=== PATIENT | male | born 1950 | race Caucasian/White ===

== ENCOUNTER 2020-05-27 15:09 | Inpatient (IN) | payer OTHER, MEDICARE ==
[~2020-05-27] VITALS: Ht 177.8 cm; Wt 110.0 kg
[~2020-05-27 15:09] MED LIST: ASPI-1265 PO; ATOR20TA66 PO; CHOL100010 PO; CLOP75TA35 PO; LISI-643 PO; OMEP-84 PO; TRAZ-91 PO; VENL-190 PO
--- NOTE | 2020-05-27 15:23 | NUR ---
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
[2020-05-27 15:41] LABS: BASOPHILS # (AUTO) 0.1 X10'3 (0-0.2); BASOPHILS % (AUTO) 0.9 % (0-1); EOSINOPHILS # (AUTO) 0.2 X10'3 (0-0.9); EOSINOPHILS % (AUTO) 2.8 % (0-6); HEMATOCRIT 42.1 % (42.0-52.0); HEMOGLOBIN 14.3 g/dl (14.0-17.9); LYMPHOCYTES % (AUTO) 14.5 % (21-51); MEAN CORPUSCULAR HGB CONC 33.9 g/dL (33.0-36.5); MEAN CORPUSCULAR VOLUME 97.4 FL (78-98); MONOCYTES # (AUTO) 0.8 X10'3 (0-0.9); MONOCYTES % (AUTO) 10.8 % (2-12); PLATELET COUNT 212 X10'3 (140-440); RED BLOOD COUNT 4.33 X10'6 (4.70-6.10); RED CELL DISTRIBUTION WIDTH 13.2 % (11.5-14.5)
[2020-05-27 15:55] LABS: ALANINE AMINOTRANSFERASE 29 U/L (12-78); ALBUMIN 3.6 G/DL (3.4-5.0); ALBUMIN/GLOBULIN RATIO 1.1 (1.1-1.5); ALKALINE PHOSPHATASE 94 IU/L (46-116); ANION GAP 7 (8-16); ASPARTATE AMINO TRANSFERASE 12 U/L (10-37); BILIRUBIN,TOTAL 0.6 MG/DL (0.1-1.0); BLOOD UREA NITROGEN 11 MG/DL (7-18); BUN/CREATININE RATIO 8.6 (5.4-32.0); CALCIUM 8.6 MG/DL (8.5-10.1); CHLORIDE 104 MMOL/L (99-107); CREATININE 1.28 MG/DL (0.60-1.10); GLUCOSE 314 MG/DL (70-104); SODIUM 137 MMOL/L (135-145); TOTAL CARBON DIOXIDE 25.9 MMOL/L (24-32); eGFR 55 ML/MIN
[2020-05-27] MEDS ORDERED: furosemide 10 MG/1 ML 10ml inj IV ONE (17:50)
--- NOTE | 2020-05-27 18:30 | NUR ---
pt resting quietly on gurney, resp even and unlabored,
[2020-05-27] MEDS ORDERED: ALOG12.5 PO (18:50)
[2020-05-27] MEDS ORDERED: TIOT4MIS5 INH (18:50)
[2020-05-27] MEDS ORDERED: MULT-1141 PO (18:51)
[2020-05-27] MEDS ORDERED: MELA5TAB12 PO (18:51)
[2020-05-27] MEDS ORDERED: mag hydrox/Alum hydrox/simeth 30ml oral suspension PO PRN (19:35)
[2020-05-27] MEDS ORDERED: potassium Cl 20 mEq SR tablet PO PRN ×2 (19:35)
[2020-05-27] MEDS ORDERED: acetaminophen 325mg tablet PO PRN (19:35)
[2020-05-27] MEDS ORDERED: magnesium hydroxide 30ml (MOM) UD suspension PO PRN (19:35)
[2020-05-27] MEDS ORDERED: potassium CL 10mEq/100ml bag 100 ML IV PRN ×2 (19:35)
[2020-05-27] MEDS ORDERED: ondansetron/PF 4mg/2ml inj IV PRN (19:35)
[2020-05-27] MEDS ORDERED: glucagon, human recombinant 1mg kit SUBCUT PRN (19:40)
[2020-05-27] MEDS ORDERED: dextrose 50%-water 50ml dispensing syringe IV PRN ×2 (19:40)
[2020-05-27] MEDS ORDERED: MESSAGE TO PHARMACY PO ONE (19:40)
[2020-05-27] MEDS ORDERED: dextrose ORAL solution 15 GM/59 ML bottle PO PRN ×2 (19:40)
[2020-05-27] MEDS: K and/or MAG REPLACEMENT MC SCH (20:00)
--- NOTE | 2020-05-27 20:27 | NUR ---
report called to Cheryl RN
[2020-05-27] MEDS: heparin, porcine 5000 units/ml vial SQ SCH (21:07)
[2020-05-27] MEDS: furosemide 10 MG/1 ML 10ml inj IV SCH (21:07)
[2020-05-27] MEDS: venlafaxine XR 75mg capsule (Q24H) PO SCH (21:08)
[2020-05-27] MEDS: insulin glargine (Lantus) pen - multi-dose SQ SCH (21:21)
[2020-05-27 21:30] VITALS: BP 132/74
[2020-05-27 21:56] LABS: HEMOGLOBIN A1C 8.5 % (4.5-6.2)
[2020-05-27 22:00] VITALS: BP 129/72
[2020-05-27] MEDS: ipratropium 0.5 MG/2.5ML nebule IH SCH (23:00)
[2020-05-28] VITALS (14 sets, daily range): BP systolic 74–128; BP diastolic 34–83
[2020-05-28] MEDS: ipratropium 0.5 MG/2.5ML nebule IH SCH ×4 (03:00→21:07)
[2020-05-28 03:48] LABS: BASOPHILS # (AUTO) 0.1 X10'3 (0-0.2); BASOPHILS % (AUTO) 0.6 % (0-1); EOSINOPHILS # (AUTO) 0.2 X10'3 (0-0.9); EOSINOPHILS % (AUTO) 1.9 % (0-6); HEMATOCRIT 44.3 % (42.0-52.0); HEMOGLOBIN 14.8 g/dl (14.0-17.9); LYMPHOCYTES % (AUTO) 21.8 % (21-51); MEAN CORPUSCULAR HEMOGLOBIN 32.5 PG (27.0-31.0); MEAN CORPUSCULAR HGB CONC 33.5 g/dL (33.0-36.5); MEAN CORPUSCULAR VOLUME 96.9 FL (78-98); MONOCYTES # (AUTO) 1.1 X10'3 (0-0.9); MONOCYTES % (AUTO) 12.6 % (2-12); NEUTROPHILS # (AUTO) 5.7 X10'3 (1.8-7.7); NEUTROPHILS % (AUTO) 63.1 % (42-75); PLATELET COUNT 227 X10'3 (140-440); RED BLOOD COUNT 4.57 X10'6 (4.70-6.10); RED CELL DISTRIBUTION WIDTH 13.5 % (11.5-14.5)
[2020-05-28 03:56] LABS: ALANINE AMINOTRANSFERASE 30 U/L (12-78); ALBUMIN 3.9 G/DL (3.4-5.0); ALBUMIN/GLOBULIN RATIO 1.1 (1.1-1.5); ALKALINE PHOSPHATASE 89 IU/L (46-116); ANION GAP 4 (8-16); ASPARTATE AMINO TRANSFERASE 18 U/L (10-37); BILIRUBIN,TOTAL 0.7 MG/DL (0.1-1.0); BLOOD UREA NITROGEN 14 MG/DL (7-18); BUN/CREATININE RATIO 9.6 (5.4-32.0); CALCIUM 9.2 MG/DL (8.5-10.1); CHLORIDE 102 MMOL/L (99-107); CREATININE 1.46 MG/DL (0.60-1.10); GLUCOSE 199 MG/DL (70-104); POTASSIUM 3.5 MMOL/L (3.5-5.1); SODIUM 138 MMOL/L (135-145); TOTAL CARBON DIOXIDE 32.3 MMOL/L (24-32); TOTAL PROTEIN 7.4 G/DL (6.4-8.2); eGFR 47 ML/MIN
[2020-05-28 03:59] LABS: CHOL/HDL RATIO 3.1 (0.00-4.99); CHOLESTEROL 157 MG/DL (0-200); HDL CHOLESTEROL 51 MG/DL (35-60); LDL CHOLESTEROL 92 MG/DL (50-100); TRIGLYCERIDES 99 MG/DL (20-135)
--- NOTE | 2020-05-28 06:29 | NUR ---
Problems reprioritized. Patient report given, questions answered & plan of care reviewed with Pat RN.
[2020-05-28] MEDS: K and/or MAG REPLACEMENT MC SCH ×2 (08:00→20:37)
[2020-05-28] MEDS: furosemide 10 MG/1 ML 10ml inj IV SCH (08:00)
[2020-05-28] MEDS: lisinopril 10 MG tablet PO SCH (08:00)
[2020-05-28] MEDS: venlafaxine XR 75mg capsule (Q24H) PO SCH ×2 (08:06→20:20)
[2020-05-28] MEDS: aspirin 81mg tab.chew PO SCH (08:08)
[2020-05-28] MEDS: atorvastatin 20mg tablet PO SCH (08:08)
[2020-05-28] MEDS: pantoprazole 40mg Tablet.DR PO SCH (08:09)
[2020-05-28] MEDS: heparin, porcine 5000 units/ml vial SQ SCH ×2 (08:10→20:21)
[2020-05-28] MEDS: insulin Lispro (HumaLOG) vial - multi-dose SQ SCH ×4 (08:55→21:56)
[2020-05-28] MEDS ORDERED: furosemide 40mg/4ml inj IV SCH (11:05)
[2020-05-28 12:54] LABS: CLARITY,URINE CLEAR (Clear); COLOR,URINE YELLOW (Yellow); GLUCOSE, URINE 250 mg/dl (Neg); KETONES,URINE NEGATIVE (Neg); LEUKOCYTE ESTERASE ,URINE NEGATIVE (Neg); NITRITES, URINE NEGATIVE (Neg); OCCULT BLOOD,URINE NEGATIVE (Neg); PH,URINE 5.5 (4.8-8.0); PROTEIN,URINE NEGATIVE (Neg); UROBILINOGEN,URINE 0.2 E.U/dL (0.2-1.0)
[2020-05-28 12:55] LABS: UA COLLECTION TYPE CLN CATCH MIDSTREAM
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
[2020-05-28] MEDS ORDERED: DOBUTamine-DoBUTrex 500mg/D5W 250 ML IV SCH (14:00)
[2020-05-28] MEDS ORDERED: magnesium Cl slow-release 64mg tablet PO PRN (14:55)
[2020-05-28] MEDS ORDERED: magnesium 4gm in 100ml NS 100 ML IV PRN (14:55)
[2020-05-28] MEDS ORDERED: magnesium 2GM in 50ml NS 50 ML IV PRN (14:55)
[2020-05-28] MEDS ORDERED: potassium CL 10mEq/100ml bag 100 ML IV PRN (14:55)
--- NOTE | 2020-05-28 15:00 | NUR ---
STARTED PATIENT ON DOBUTREX AT 3MCG/KG. NO C/O AT THIS TIME. HOB UP CALL LIGHT IN REACH Addendum: 05/28/20 at 1937 by Sindy Hanks RN Amended: Links added.
[2020-05-28] MEDS: potassium Cl 20 mEq SR tablet PO PRN ×2 (15:37→20:36)
[2020-05-28 16:45] LABS: MAGNESIUM 1.9 MG/DL (1.5-2.4)
[2020-05-28] MEDS: DOBUTamine-DoBUTrex 500mg/D5W 250 ML IV SCH (17:40)
--- NOTE | 2020-05-28 18:35 | NUR ---
Patient in room MED 314. I have received report from DUANE RN and had the opportunity to ask questions and assume patient care.
[2020-05-28] MEDS ORDERED: furosemide 10 MG/1 ML 10ml inj IV SCH (20:00)
[2020-05-28] MEDS: furosemide 20 MG/2 ML vial IV SCH (20:18)
[2020-05-28] MEDS: carVEDilol 3.125mg tablet PO SCH (20:20)
[2020-05-28] MEDS: acetylcysteine 200 MG/ml 4ml vial PO SCH (20:31)
[2020-05-28] MEDS: insulin glargine (Lantus) pen - multi-dose SQ SCH (21:57)
[2020-05-29] VITALS (20 sets, daily range): BP systolic 67–118; BP diastolic 14–82
[2020-05-29] MEDS: ipratropium 0.5 MG/2.5ML nebule IH SCH ×3 (03:06→20:18)
--- NOTE | 2020-05-29 06:43 | NUR ---
Problems reprioritized. Patient report given, questions answered & plan of care reviewed with PAT RN.
[2020-05-29 07:24] LABS: BASOPHILS % (AUTO) 0.6 % (0-1); EOSINOPHILS # (AUTO) 0.2 X10'3 (0-0.9); EOSINOPHILS % (AUTO) 2.2 % (0-6); HEMATOCRIT 41.5 % (42.0-52.0); HEMOGLOBIN 14.1 g/dl (14.0-17.9); LYMPHOCYTES # (AUTO) 1.6 X10'3 (1.1-4.8); LYMPHOCYTES % (AUTO) 19.9 % (21-51); MEAN CORPUSCULAR HEMOGLOBIN 32.7 PG (27.0-31.0); MEAN CORPUSCULAR HGB CONC 33.9 g/dL (33.0-36.5); MEAN CORPUSCULAR VOLUME 96.4 FL (78-98); MEAN PLATELET VOLUME 10.5 FL (7.4-10.4); MONOCYTES % (AUTO) 13.1 % (2-12); NEUTROPHILS # (AUTO) 5.1 X10'3 (1.8-7.7); NEUTROPHILS % (AUTO) 64.2 % (42-75); PLATELET COUNT 218 X10'3 (140-440); RED CELL DISTRIBUTION WIDTH 13.5 % (11.5-14.5)
[2020-05-29] MEDS: DOBUTamine-DoBUTrex 500mg/D5W 250 ML IV SCH ×2 (07:37→21:50)
[2020-05-29] MEDS: heparin, porcine 5000 units/ml vial SQ SCH (08:00)
[2020-05-29] MEDS: K and/or MAG REPLACEMENT MC SCH ×2 (08:00→20:00)
[2020-05-29] MEDS: furosemide 20 MG/2 ML vial IV SCH ×2 (08:00→20:00)
[2020-05-29] MEDS: venlafaxine XR 75mg capsule (Q24H) PO SCH ×2 (08:00→20:00)
[2020-05-29 08:22] LABS: ALANINE AMINOTRANSFERASE 30 U/L (12-78); ALBUMIN 3.8 G/DL (3.4-5.0); ALBUMIN/GLOBULIN RATIO 1.1 (1.1-1.5); ALKALINE PHOSPHATASE 83 IU/L (46-116); ANION GAP 9 (8-16); ASPARTATE AMINO TRANSFERASE 21 U/L (10-37); BLOOD UREA NITROGEN 20 MG/DL (7-18); BUN/CREATININE RATIO 14.9 (5.4-32.0); CALCIUM 8.9 MG/DL (8.5-10.1); CHLORIDE 99 MMOL/L (99-107); CREATININE 1.34 MG/DL (0.60-1.10); GLUCOSE 172 MG/DL (70-104); POTASSIUM 3.7 MMOL/L (3.5-5.1); SODIUM 137 MMOL/L (135-145); TOTAL CARBON DIOXIDE 28.8 MMOL/L (24-32); TOTAL PROTEIN 7.2 G/DL (6.4-8.2); eGFR 52 ML/MIN
[2020-05-29] MEDS: lisinopril 10 MG tablet PO SCH (09:13)
[2020-05-29] MEDS: atorvastatin 20mg tablet PO SCH (09:13)
[2020-05-29] MEDS: pantoprazole 40mg Tablet.DR PO SCH (09:14)
[2020-05-29] MEDS: acetylcysteine 200 MG/ml 4ml vial PO SCH ×2 (09:14→20:52)
[2020-05-29] MEDS: carVEDilol 3.125mg tablet PO SCH ×2 (09:15→20:00)
[2020-05-29] MEDS: aspirin 81mg tab.chew PO SCH (09:15)
[2020-05-29] MEDS: potassium Cl 20 mEq SR tablet PO PRN ×2 (09:16→15:24)
[2020-05-29] MEDS: potassium Cl 20 mEq SR tablet PO SCH ×2 (09:16→20:51)
[2020-05-29] MEDS ORDERED: METO-395 PO (09:32)
[2020-05-29] MEDS ORDERED: atorvastatin 20mg tablet PO ONE (09:40)
[2020-05-29] MEDS ORDERED: fentaNYL/PF 50MCG/1 ML 2ML syringe ONE (10:32)
[2020-05-29] MEDS ORDERED: midazolam 2 mg/2 ml injection ONE (10:32)
[2020-05-29] MEDS ORDERED: LIDOcaine 1% (10mg/ml)w/preservative injection 20ml MDV ONE (10:32)
[2020-05-29] MEDS ORDERED: iohexol 350 MG/ML 50ML vial IV ONE (10:32)
[2020-05-29] MEDS ORDERED: heparin 1,000unit/ml 10ml vial 10 ML ONE (10:32)
[2020-05-29] MEDS ORDERED: iohexol 350 MG/1 ML 200ml bottle ONE (10:33)
[2020-05-29] MEDS ORDERED: heparin 1,000 UNITS/NS 500ml 500 ML ONE ×2 (10:33)
[2020-05-29] MEDS ORDERED: nitroGLYCERIN-Tridil 50MG/D5W 250 ML IV ONE (10:33)
[2020-05-29] MEDS ORDERED: spironolactone 25 MG tablet PO SCH (12:00)
[2020-05-29] MEDS ORDERED: losartan 25mg tablet PO SCH (12:00)
--- NOTE | 2020-05-29 16:25 | NUR ---
PATIENT HAD 10 BEAT RUN OF V TACHEyal KELLY C/P VS STABLE AFIB WITH CONTROLLED RATE. DR. JENSEN GARCIA. Addendum: 05/29/20 at 1837 by Sindy Hanks RN Amended: Links added.
[2020-05-29] MEDS ORDERED: potassium Cl 20 mEq SR tablet PO STA (18:26)
[2020-05-29] MEDS ORDERED: magnesium 2GM in 50ml NS 50 ML IV ONE (18:30)
--- NOTE | 2020-05-29 18:30 | NUR ---
Patient in room MED 314. I have received report from Luis A, and had the opportunity to ask questions and assume patient care.
--- NOTE | 2020-05-29 18:35 | NUR ---
DR. STYLES PHONED ,ORDERS RECEIVED AND NOTED. Addendum: 05/29/20 at 1837 by Sindy Hanks RN Amended: Links added.
--- NOTE | 2020-05-29 19:00 | NUR ---
Patient's blood pressure drop to 77/37 with HR of 81at 1900 and then again to 67/31 with HR of 81 despite RN bolus x2 was administered. Dr. Lozano and Dr. Leos paged regarding the issue. waiting for the response from both.
--- NOTE | 2020-05-29 19:36 | NUR ---
Dr. Lozano paged and left the message regarding the patient's blood pressure dropping despite the patient received 2 bolus of 250ml bolus. blood pressure at 1929 is 67/31 with HR of 81. The answering service said that they gonlaisha page the clearing distribution clerk doctor. Addendum: 05/29/20 at 1950 by Massiel Mart RN Dr. Lozano called and ordered to decrease the patients lisinopril to 10mg daily. Hold on to his BP medications for now and keep an eye on his blood pressure. No other orders were given at this time.
--- NOTE | 2020-05-29 19:36 | NUR ---
PAGER ID: [phone] MESSAGE: Dayron Brandt 70M Room 314 ACCE, s/p heart cath with no stent placement. BP drop to 67/31 with HR of 81. the site is CDI, pt. asymptomatic. Concerned about peritoneal bleed. Pt is on 2nd bolus but BP still low. Amanda ACCE [id number] Addendum: 05/29/20 at 1950 by Massiel Mart RN Dr. Leos called back and ordered to hold on to his blood pressure medication. Stating that the low blood pressure maybe due to his low LVEF being 25-30%. No other orders were given.
--- NOTE | 2020-05-29 19:52 | NUR ---
Patient blood sugar coverage for dinner was delayed due to patient being in hypotensive condition and paging and talking with the hospitalist and Dr. Lozano. Will recheck his blood sugar at 2100 and will treat accordingly.
[2020-05-29] MEDS: insulin glargine (Lantus) pen - multi-dose SQ SCH (21:07)
[2020-05-30] VITALS (11 sets, daily range): BP systolic 89–135; BP diastolic 45–70
[2020-05-30] MEDS: ipratropium 0.5 MG/2.5ML nebule IH SCH ×3 (02:21→19:36)
[2020-05-30 06:06] LABS: BASOPHILS # (AUTO) 0.1 X10'3 (0-0.2); EOSINOPHILS # (AUTO) 0.3 X10'3 (0-0.9); EOSINOPHILS % (AUTO) 4.5 % (0-6); HEMATOCRIT 38.3 % (42.0-52.0); HEMOGLOBIN 12.7 g/dl (14.0-17.9); LYMPHOCYTES # (AUTO) 1.4 X10'3 (1.1-4.8); LYMPHOCYTES % (AUTO) 23.5 % (21-51); MEAN CORPUSCULAR HEMOGLOBIN 32.5 PG (27.0-31.0); MEAN CORPUSCULAR HGB CONC 33.1 g/dL (33.0-36.5); MEAN CORPUSCULAR VOLUME 98.2 FL (78-98); MEAN PLATELET VOLUME 10.2 FL (7.4-10.4); MONOCYTES # (AUTO) 0.8 X10'3 (0-0.9); MONOCYTES % (AUTO) 12.9 % (2-12); NEUTROPHILS # (AUTO) 3.5 X10'3 (1.8-7.7); NEUTROPHILS % (AUTO) 58.1 % (42-75); PLATELET COUNT 193 X10'3 (140-440); RED CELL DISTRIBUTION WIDTH 13.3 % (11.5-14.5); WHITE BLOOD COUNT 6.1 X10'3 (4.5-11.0)
[2020-05-30 06:08] LABS: ALANINE AMINOTRANSFERASE 27 U/L (12-78); ALBUMIN 3.4 G/DL (3.4-5.0); ALBUMIN/GLOBULIN RATIO 1.1 (1.1-1.5); ALKALINE PHOSPHATASE 70 IU/L (46-116); ANION GAP 5 (8-16); ASPARTATE AMINO TRANSFERASE 23 U/L (10-37); BILIRUBIN,TOTAL 0.8 MG/DL (0.1-1.0); BLOOD UREA NITROGEN 23 MG/DL (7-18); BUN/CREATININE RATIO 17.2 (5.4-32.0); CALCIUM 8.4 MG/DL (8.5-10.1); CHLORIDE 101 MMOL/L (99-107); CHOLESTEROL 132 MG/DL (0-200); CREATININE 1.34 MG/DL (0.60-1.10); GLUCOSE 161 MG/DL (70-104); HDL CHOLESTEROL 44 MG/DL (35-60); LDL CHOLESTEROL 76 MG/DL (50-100); MAGNESIUM 2.3 MG/DL (1.5-2.4); POTASSIUM 4.1 MMOL/L (3.5-5.1); SODIUM 136 MMOL/L (135-145); TOTAL PROTEIN 6.5 G/DL (6.4-8.2); TRIGLYCERIDES 78 MG/DL (20-135); eGFR 52 ML/MIN
--- NOTE | 2020-05-30 06:30 | NUR ---
Patient in room MED 314. I have received report from Massiel VENTURA and had the opportunity to ask questions and assume patient care.
--- NOTE | 2020-05-30 06:35 | NUR ---
Problems reprioritized. Patient report given to Andrew, questions answered & plan of care reviewed with .
[2020-05-30] MEDS: carVEDilol 3.125mg tablet PO SCH ×2 (08:00→19:33)
[2020-05-30] MEDS: K and/or MAG REPLACEMENT MC SCH ×2 (08:00→20:00)
[2020-05-30] MEDS: acetylcysteine 200 MG/ml 4ml vial PO SCH ×2 (08:21→19:33)
[2020-05-30] MEDS: venlafaxine XR 75mg capsule (Q24H) PO SCH ×2 (08:21→19:33)
[2020-05-30] MEDS: pantoprazole 40mg Tablet.DR PO SCH (08:22)
[2020-05-30] MEDS: furosemide 20 MG/2 ML vial IV SCH ×2 (08:22→19:33)
[2020-05-30] MEDS: aspirin 81mg tab.chew PO SCH (08:22)
[2020-05-30] MEDS: atorvastatin 20mg tablet PO SCH (08:23)
[2020-05-30] MEDS: insulin Lispro (HumaLOG) vial - multi-dose SQ SCH ×3 (08:57→19:29)
[2020-05-30] MEDS: lisinopril 10 MG tablet PO SCH (12:00)
[2020-05-30] MEDS: DOBUTamine-DoBUTrex 500mg/D5W 250 ML IV SCH (12:43)
--- NOTE | 2020-05-30 18:15 | NUR ---
Problems reprioritized. Patient report given, questions answered & plan of care reviewed with Massiel VENTURA.
[2020-05-30] MEDS: insulin glargine (Lantus) pen - multi-dose SQ SCH (21:14)
[2020-05-31 02:00] VITALS: BP 105/42
[2020-05-31] MEDS: ipratropium 0.5 MG/2.5ML nebule IH SCH ×3 (02:47→15:12)
[2020-05-31] MEDS: DOBUTamine-DoBUTrex 500mg/D5W 250 ML IV SCH (05:01)
[2020-05-31 05:58] LABS: ALANINE AMINOTRANSFERASE 29 U/L (12-78); ALBUMIN 3.4 G/DL (3.4-5.0); ALBUMIN/GLOBULIN RATIO 1.1 (1.1-1.5); ALKALINE PHOSPHATASE 73 IU/L (46-116); ANION GAP 4 (8-16); ASPARTATE AMINO TRANSFERASE 26 U/L (10-37); BILIRUBIN,TOTAL 0.8 MG/DL (0.1-1.0); BLOOD UREA NITROGEN 25 MG/DL (7-18); BUN/CREATININE RATIO 18.1 (5.4-32.0); CALCIUM 8.6 MG/DL (8.5-10.1); CHLORIDE 102 MMOL/L (99-107); CREATININE 1.38 MG/DL (0.60-1.10); GLUCOSE 104 MG/DL (70-104); MAGNESIUM 2.1 MG/DL (1.5-2.4); POTASSIUM 4.2 MMOL/L (3.5-5.1); SODIUM 136 MMOL/L (135-145); TOTAL CARBON DIOXIDE 29.7 MMOL/L (24-32); TOTAL PROTEIN 6.5 G/DL (6.4-8.2); eGFR 51 ML/MIN
[2020-05-31 06:00] VITALS: BP 110/75
[2020-05-31 06:05] LABS: BASOPHILS % (AUTO) 0.5 % (0-1); EOSINOPHILS # (AUTO) 0.2 X10'3 (0-0.9); EOSINOPHILS % (AUTO) 3.5 % (0-6); HEMATOCRIT 37.8 % (42.0-52.0); HEMOGLOBIN 12.8 g/dl (14.0-17.9); LYMPHOCYTES # (AUTO) 1.3 X10'3 (1.1-4.8); LYMPHOCYTES % (AUTO) 18.1 % (21-51); MEAN CORPUSCULAR HGB CONC 33.9 g/dL (33.0-36.5); MEAN CORPUSCULAR VOLUME 97.3 FL (78-98); MEAN PLATELET VOLUME 10.1 FL (7.4-10.4); MONOCYTES # (AUTO) 0.9 X10'3 (0-0.9); MONOCYTES % (AUTO) 12.4 % (2-12); NEUTROPHILS # (AUTO) 4.6 X10'3 (1.8-7.7); NEUTROPHILS % (AUTO) 65.5 % (42-75); PLATELET COUNT 181 X10'3 (140-440); RED BLOOD COUNT 3.88 X10'6 (4.70-6.10); RED CELL DISTRIBUTION WIDTH 13.2 % (11.5-14.5); WHITE BLOOD COUNT 7.1 X10'3 (4.5-11.0)
--- NOTE | 2020-05-31 06:10 | NUR ---
Problems reprioritized. Patient report given Trent, questions answered & plan of care reviewed with .
[2020-05-31] MEDS: lisinopril 10 MG tablet PO SCH (08:00)
[2020-05-31] MEDS: K and/or MAG REPLACEMENT MC SCH (08:00)
[2020-05-31] MEDS: potassium Cl 20 mEq SR tablet PO SCH (09:07)
[2020-05-31] MEDS: pantoprazole 40mg Tablet.DR PO SCH (09:07)
[2020-05-31] MEDS: venlafaxine XR 75mg capsule (Q24H) PO SCH (09:07)
[2020-05-31] MEDS: aspirin 81mg tab.chew PO SCH (09:07)
[2020-05-31] MEDS: acetylcysteine 200 MG/ml 4ml vial PO SCH (09:08)
[2020-05-31] MEDS: atorvastatin 20mg tablet PO SCH (09:08)
[2020-05-31] MEDS: carVEDilol 3.125mg tablet PO SCH (09:09)
[2020-05-31] MEDS: insulin Lispro (HumaLOG) vial - multi-dose SQ SCH ×2 (09:21→13:15)
[2020-05-31] MEDS: furosemide 20 MG/2 ML vial IV SCH (09:22)
[2020-05-31 10:00] VITALS: BP 119/80
[2020-05-31] MEDS ORDERED: FURO20TA4 PO (14:41)
[2020-05-31] MEDS ORDERED: SPIR25TA5 PO (14:41)
[2020-05-31 15:00] VITALS: BP 95/57
--- NOTE | 2020-05-31 16:38 | NUR ---
CALLED DR. STYLES OFFICE TO SCHEDULE FOLLOW UP APPOINTMENT. OFFICE WAS CLOSED. EDUCATED PATIENT AND HE IS AGREEABLE TO MAKE HIS OWN FOLLOW UP APPOINTMENT. OFFICE NUMBER PROVIDED TO THE PATIENT.
[2020-05-31] MEDS ORDERED: COR3.125T PO (17:09)
--- NOTE | 2020-05-31 18:35 | NUR ---
Patient stable for discharge per MD orders. All discharge instructions and education reviewed with patient and all questions answered. new prescriptions given to patient in written form for [facility]. PIV discontinued, tip intact, dressing CDI, patient tolerated well. tele monitoring removed. all known belongings collected and sent with patient. patient wheeled to pmv driven by family.
== END 2020-05-31 18:25 | disposition home health service (06) | DRG 286 ==
LOC: ER 15:09 → ED HOLD 19:33 → MED 3N 20:45
PROVIDERS: ADMIT Internal Medicine; ATTEND Family Medicine
PROC: 4A023N8 Measurement of Cardiac Sampling and Pressure, Bilateral, Percutaneous Approach (ICD-10-PCS; principal; 2020-05-29)
PROC: B2111ZZ Fluoroscopy of Multiple Coronary Arteries using Low Osmolar Contrast (ICD-10-PCS; 2020-05-29)
PROC: B2151ZZ Fluoroscopy of Left Heart using Low Osmolar Contrast (ICD-10-PCS; 2020-05-29)
PROC: B3101ZZ Fluoroscopy of Thoracic Aorta using Low Osmolar Contrast (ICD-10-PCS; 2020-05-29)
PROC: B2131ZZ Fluoroscopy of Multiple Coronary Artery Bypass Grafts using Low Osmolar Contrast (ICD-10-PCS; 2020-05-29)
DX: I13.0 Hypertensive heart and chronic kidney disease with heart failure and stage 1 through stage 4 chronic kidney disease, or unspecified chronic kidney disease (principal); I50.23 Acute on chronic systolic (congestive) heart failure; N18.9 Chronic kidney disease, unspecified; I25.119 Atherosclerotic heart disease of native coronary artery with unspecified angina pectoris; J44.9 Chronic obstructive pulmonary disease, unspecified; E78.5 Hyperlipidemia, unspecified; E78.00 Pure hypercholesterolemia, unspecified; I44.7 Left bundle-branch block, unspecified; E11.22 Type 2 diabetes mellitus with diabetic chronic kidney disease; I42.0 Dilated cardiomyopathy; F32.9 Major depressive disorder, single episode, unspecified; K21.9 Gastro-esophageal reflux disease without esophagitis; I25.2 Old myocardial infarction; Z80.8 Family history of malignant neoplasm of other organs or systems; Z82.5 Family history of asthma and other chronic lower respiratory diseases; Z83.3 Family history of diabetes mellitus; Z87.442 Personal history of urinary calculi; Z87.891 Personal history of nicotine dependence; Z95.1 Presence of aortocoronary bypass graft; Z79.899 Other long term (current) drug therapy
CPT/HCPCS: 36415; 71045; 80053; 80061; 81003; 82948; 83036; 83735; 83880; 84443; 84484; 85025; 86592; 87081; 87491; 93005; 93306; 93459; 93567; 94640; 94760; 99152; 99153; 99285; A4620; A6258; C1751; C1769; G0378; J1250; J1644; J1815; J1940; J2001; J2250; J3010; J3475; J3490; Q9967

== ENCOUNTER 2020-07-28 16:39 | Inpatient (IN) | payer OTHER, MEDICARE ==
[~2020-07-28] VITALS: Ht 177.8 cm; Wt 100.2 kg
[~2020-07-28 16:39] MED LIST changes: +ALOG12.5 PO; -CLOP75TA35 PO; +COR3.125T PO; +FURO20TA4 PO; +MELA5TAB12 PO; +METO-395 PO; +MULT-1141 PO; +SPIR25TA5 PO; +TIOT4MIS5 INH; -TRAZ-91 PO
[2020-07-28 18:06] LABS: BASOPHILS % (AUTO) 0.4 % (0-1); EOSINOPHILS # (AUTO) 0.1 X10'3 (0-0.9); EOSINOPHILS % (AUTO) 1.2 % (0-6); HEMATOCRIT 43.6 % (42.0-52.0); HEMOGLOBIN 14.4 g/dl (14.0-17.9); LYMPHOCYTES # (AUTO) 0.9 X10'3 (1.1-4.8); LYMPHOCYTES % (AUTO) 10.4 % (21-51); MEAN CORPUSCULAR HEMOGLOBIN 32.5 PG (27.0-31.0); MEAN CORPUSCULAR HGB CONC 33.1 g/dL (33.0-36.5); MEAN CORPUSCULAR VOLUME 98.2 FL (78-98); MEAN PLATELET VOLUME 10.2 FL (7.4-10.4); MONOCYTES # (AUTO) 0.7 X10'3 (0-0.9); MONOCYTES % (AUTO) 8.1 % (2-12); NEUTROPHILS # (AUTO) 6.7 X10'3 (1.8-7.7); NEUTROPHILS % (AUTO) 79.9 % (42-75); PLATELET COUNT 194 X10'3 (140-440); RED BLOOD COUNT 4.44 X10'6 (4.70-6.10); RED CELL DISTRIBUTION WIDTH 13.9 % (11.5-14.5); WHITE BLOOD COUNT 8.3 X10'3 (4.5-11.0)
[2020-07-28 18:31] LABS: ALANINE AMINOTRANSFERASE 16 U/L (12-78); ALBUMIN 3.8 G/DL (3.4-5.0); ALBUMIN/GLOBULIN RATIO 1.1 (1.1-1.5); ALKALINE PHOSPHATASE 91 IU/L (46-116); ANION GAP 9 (8-16); ASPARTATE AMINO TRANSFERASE 19 U/L (10-37); BLOOD UREA NITROGEN 23 MG/DL (7-18); CALCIUM 8.8 MG/DL (8.5-10.1); CHLORIDE 106 MMOL/L (99-107); CREATININE 1.21 MG/DL (0.60-1.10); GLUCOSE 179 MG/DL (70-104); POTASSIUM 4.3 MMOL/L (3.5-5.1); SODIUM 137 MMOL/L (135-145); TOTAL CARBON DIOXIDE 22.3 MMOL/L (24-32); TOTAL PROTEIN 7.4 G/DL (6.4-8.2); eGFR 59 ML/MIN
[2020-07-28] MEDS ORDERED: ipratropium/albuterol 3ml nebule NEB ONE (18:35)
[2020-07-28] MEDS ORDERED: predniSONE 20 mg tablet PO ONE (18:35)
[2020-07-28] MEDS ORDERED: furosemide 20 MG/2 ML vial IV ONE ×2 (19:15→23:15)
[2020-07-28] MEDS ORDERED: METF500T PO (19:46)
[2020-07-28] MEDS ORDERED: SEMA0.25 (19:47)
[2020-07-28] MEDS ORDERED: mag hydrox/Alum hydrox/simeth 30ml oral suspension PO PRN (21:05)
[2020-07-28] MEDS ORDERED: magnesium hydroxide 30ml (MOM) UD suspension PO PRN (21:05)
[2020-07-28] MEDS ORDERED: ondansetron/PF 4mg/2ml inj IV PRN (21:05)
[2020-07-28] MEDS ORDERED: acetaminophen 325mg tablet PO PRN ×2 (21:05)
[2020-07-28] MEDS ORDERED: morphine 2 MG/ML inj. syringe IV PRN ×2 (21:05)
--- NOTE | 2020-07-28 22:45 | NUR ---
PT LYING ON THE GURNEY AND IS AWAKE. STABLE VS. AWAITING IPA.
[2020-07-29] MEDS: Melatonin 3mg tablet PO SCH ×2 (00:39→20:25)
--- NOTE | 2020-07-29 00:44 | NUR ---
PLACED IN HOSPITAL BED. VSS, GIVEN SANDWICH AND JUICE AND JELLO. PT IS POLITE AND COOPERATIVE. AWAITING IPA. EXPECT ADMIT HOLD IN ER THROUGH THE NIGHT. PT UPDATED OF THIS.
--- NOTE | 2020-07-29 03:01 | NUR ---
Pt sleeping, lying on his right side with blankets covering to his shoulders.
[2020-07-29 05:32] LABS: BASOPHILS % (AUTO) 0.2 % (0-1); EOSINOPHILS % (AUTO) 0 % (0-6); HEMATOCRIT 43.3 % (42.0-52.0); HEMOGLOBIN 14.4 g/dl (14.0-17.9); LYMPHOCYTES # (AUTO) 0.6 X10'3 (1.1-4.8); LYMPHOCYTES % (AUTO) 7.1 % (21-51); MEAN CORPUSCULAR HEMOGLOBIN 32.7 PG (27.0-31.0); MEAN CORPUSCULAR HGB CONC 33.3 g/dL (33.0-36.5); MEAN CORPUSCULAR VOLUME 98.2 FL (78-98); MEAN PLATELET VOLUME 10.3 FL (7.4-10.4); MONOCYTES # (AUTO) 0.4 X10'3 (0-0.9); MONOCYTES % (AUTO) 5.3 % (2-12); NEUTROPHILS # (AUTO) 7.1 X10'3 (1.8-7.7); NEUTROPHILS % (AUTO) 87.4 % (42-75); PLATELET COUNT 201 X10'3 (140-440); RED BLOOD COUNT 4.41 X10'6 (4.70-6.10); RED CELL DISTRIBUTION WIDTH 13.8 % (11.5-14.5); WHITE BLOOD COUNT 8.1 X10'3 (4.5-11.0)
[2020-07-29 05:44] LABS: ALBUMIN 3.6 G/DL (3.4-5.0); ANION GAP 8 (8-16); BLOOD UREA NITROGEN 22 MG/DL (7-18); BUN/CREATININE RATIO 15.2 (5.4-32.0); CALCIUM 9.5 MG/DL (8.5-10.1); CHLORIDE 106 MMOL/L (99-107); CREATININE 1.45 MG/DL (0.60-1.10); GLUCOSE 215 MG/DL (70-104); POTASSIUM 4.5 MMOL/L (3.5-5.1); SODIUM 144 MMOL/L (135-145); TOTAL CARBON DIOXIDE 29.6 MMOL/L (24-32); eGFR 48 ML/MIN
[2020-07-29] MEDS: enoxaparin 40mg/0.4ml syringe SUBCUT SCH (08:43)
[2020-07-29] MEDS: atorvastatin 20mg tablet PO SCH (08:44)
[2020-07-29] MEDS: aspirin 81mg tab.chew PO SCH (08:44)
[2020-07-29] MEDS: metoprolol succinate 25mg (24-HOUR) SR. Tablet PO SCH (08:44)
[2020-07-29] MEDS: vitamin D (cholecalciferol) 1,000 unit tablet PO SCH (08:44)
[2020-07-29] MEDS: pantoprazole 40mg Tablet.DR PO SCH (08:44)
[2020-07-29] MEDS: furosemide 20 MG/2 ML vial IV SCH ×2 (08:45→20:25)
--- NOTE | 2020-07-29 09:04 | NUR ---
dr. galaviz paged: PAGER ID: [phone] MESSAGE: JUANJOSE - ER PT GOING TO ACCE 312, H/O DM, OK to order hyperglycemia protocol? nurse Albina [phone]
[2020-07-29] MEDS ORDERED: dextrose 50%-water 50ml dispensing syringe IV PRN ×2 (09:05)
[2020-07-29] MEDS ORDERED: dextrose ORAL solution 15 GM/59 ML bottle PO PRN ×2 (09:05)
[2020-07-29] MEDS ORDERED: glucagon, human recombinant 1mg kit SUBCUT PRN (09:05)
[2020-07-29] MEDS ORDERED: MESSAGE TO PHARMACY PO ONE (09:05)
[2020-07-29 09:43] LABS: HEMOGLOBIN A1C 7.4 % (4.5-6.2)
[2020-07-29 10:00] VITALS: BP 135/92
[2020-07-29 11:00] VITALS: BP 110/70
--- NOTE | 2020-07-29 11:56 | NUR ---
PETE AT BEDSIDE. NEW ORDER - ECHO
[2020-07-29 15:00] VITALS: BP 107/80
[2020-07-29 18:00] VITALS: BP 110/79
--- NOTE | 2020-07-29 18:00 | NUR ---
Problems reprioritized. Patient report given, questions answered & plan of care reviewed with LORENZO Peguero.
--- NOTE | 2020-07-29 18:26 | NUR ---
Patient in room MED 312. I have received report from Neal VENTURA and had the opportunity to ask questions and assume patient care.
[2020-07-29] MEDS: insulin glargine (Lantus) pen - multi-dose SQ SCH (21:43)
[2020-07-29 22:00] VITALS: BP 96/64
[2020-07-30 02:00] VITALS: BP 108/49
--- NOTE | 2020-07-30 03:27 | NUR ---
Patient desaturates in the 80s, I educated patient on importance of wearing the nasal cannula to help with the oxygenation. Patient refuses to keep it in his nose, even with the offer of a humidifier. Patient occasionally put the cannula in his mouth. RN will continue to monitor and educate patient.
[2020-07-30 05:50] LABS: BASOPHILS % (AUTO) 0.6 % (0-1); EOSINOPHILS # (AUTO) 0.2 X10'3 (0-0.9); EOSINOPHILS % (AUTO) 2.3 % (0-6); HEMOGLOBIN 14.7 g/dl (14.0-17.9); LYMPHOCYTES # (AUTO) 1.9 X10'3 (1.1-4.8); LYMPHOCYTES % (AUTO) 24.4 % (21-51); MEAN CORPUSCULAR HEMOGLOBIN 33.2 PG (27.0-31.0); MEAN CORPUSCULAR HGB CONC 33.5 g/dL (33.0-36.5); MEAN CORPUSCULAR VOLUME 99.2 FL (78-98); MONOCYTES # (AUTO) 0.9 X10'3 (0-0.9); MONOCYTES % (AUTO) 12.1 % (2-12); NEUTROPHILS # (AUTO) 4.6 X10'3 (1.8-7.7); NEUTROPHILS % (AUTO) 60.6 % (42-75); PLATELET COUNT 211 X10'3 (140-440); RED BLOOD COUNT 4.43 X10'6 (4.70-6.10); RED CELL DISTRIBUTION WIDTH 13.8 % (11.5-14.5); WHITE BLOOD COUNT 7.7 X10'3 (4.5-11.0)
[2020-07-30 06:00] VITALS: BP 103/52
[2020-07-30 06:12] LABS: ALBUMIN 3.9 G/DL (3.4-5.0); ANION GAP 8 (8-16); BLOOD UREA NITROGEN 26 MG/DL (7-18); BUN/CREATININE RATIO 17.2 (5.4-32.0); CALCIUM 9.4 MG/DL (8.5-10.1); CHLORIDE 106 MMOL/L (99-107); CREATININE 1.51 MG/DL (0.60-1.10); GLUCOSE 129 MG/DL (70-104); SODIUM 145 MMOL/L (135-145); TOTAL CARBON DIOXIDE 31.2 MMOL/L (24-32); eGFR 46 ML/MIN
--- NOTE | 2020-07-30 06:19 | NUR ---
Problems reprioritized. Patient report given, questions answered & plan of care reviewed with Aleksandra VENTURA.
--- NOTE | 2020-07-30 06:34 | NUR ---
Patient in room MED 312. I have received report from angella Peguero and had the opportunity to ask questions and assume patient care.
[2020-07-30 07:42] LABS: MAGNESIUM 2.3 MG/DL (1.5-2.4)
[2020-07-30] MEDS: aspirin 81mg tab.chew PO SCH (09:07)
[2020-07-30] MEDS: metoprolol succinate 25mg (24-HOUR) SR. Tablet PO SCH (09:08)
[2020-07-30] MEDS: pantoprazole 40mg Tablet.DR PO SCH (09:08)
[2020-07-30] MEDS: furosemide 20 MG/2 ML vial IV SCH ×2 (09:08→20:18)
[2020-07-30] MEDS: enoxaparin 40mg/0.4ml syringe SUBCUT SCH (09:09)
[2020-07-30 10:00] VITALS: BP 137/94
[2020-07-30] MEDS: atorvastatin 20mg tablet PO SCH (11:10)
[2020-07-30] MEDS: vitamin D (cholecalciferol) 1,000 unit tablet PO SCH (11:10)
--- NOTE | 2020-07-30 12:15 | NUR ---
DM Consult: A1C 7.2. Pt seen by MARCIA May admit of this year w/ ALC 8.5 at that time and reported knowingly liberalizing diet since started. A1C significantly down since that admit. Will remain available for any DM MNT questions/concerns this admit. To f/u 08/02 for initial assessment. Addendum: 07/30/20 at [address] Amended: Links added.
[2020-07-30 14:00] VITALS: BP 106/75
[2020-07-30] MEDS: insulin Lispro (HumaLOG) vial - multi-dose SQ SCH ×2 (14:02→19:41)
--- NOTE | 2020-07-30 15:00 | NUR ---
dR. Monge AT BEDSIDE explained risks and benefits of dual chamber AICD pacer placement for tomarrow am,all questions answered
[2020-07-30] MEDS ORDERED: furosemide 20 MG/2 ML vial IV ONE (15:55)
--- NOTE | 2020-07-30 16:06 | NUR ---
Called Dr. Lozano's answering service for clarification regarding Bicarb gtt order. Pharmacy informed that 3amps of Bicarb cannot be put in 1/2NS per the order. Dr. Lozano called and gave new order for 2 amps Bicarb in 1/2 NS.
[2020-07-30] MEDS ORDERED: potassium Cl 20 mEq SR tablet PO PRN ×3 (16:10→19:15)
[2020-07-30] MEDS ORDERED: magnesium Cl slow-release 64mg tablet PO PRN ×2 (16:10→19:15)
[2020-07-30] MEDS ORDERED: potassium CL 10mEq/100ml bag 100 ML IV PRN ×2 (16:10→19:15)
[2020-07-30] MEDS ORDERED: magnesium 4gm in 100ml NS 100 ML IV PRN (16:10)
[2020-07-30] MEDS ORDERED: potassium Cl 20 mEq SR tablet PO STA (16:29)
[2020-07-30] MEDS: acetylcysteine 200 MG/ml 4ml vial PO SCH ×2 (16:37→20:20)
[2020-07-30 18:00] VITALS: BP 96/58
--- NOTE | 2020-07-30 18:15 | NUR ---
Problems reprioritized. Patient report given, questions answered & plan of care reviewed angella Dow .
--- NOTE | 2020-07-30 18:26 | NUR ---
Patient in room MED 312. I have received report from Aleksandra VENTURA and had the opportunity to ask questions and assume patient care.
--- NOTE | 2020-07-30 18:55 | NUR ---
Patient had 11 beat run vtach at 1813, no s/s reported by patient- called Dr. Lozano to inquire if he wants additional orders. Susan
[2020-07-30] MEDS ORDERED: K and/or MAG REPLACEMENT MC SCH (20:00)
[2020-07-30] MEDS: K and/or MAG REPLACEMENT MC SCH (20:17)
[2020-07-30] MEDS: magnesium 2GM in 50ml NS 50 ML IV ONE ×2 (20:23→21:37)
[2020-07-30] MEDS: Melatonin 3mg tablet PO SCH (21:37)
[2020-07-30] MEDS: insulin glargine (Lantus) pen - multi-dose SQ SCH (21:45)
[2020-07-30 22:00] VITALS: BP 123/82
[2020-07-31] MEDS ORDERED: sodium bicarbonate (8.4%) inj. 100 MEQ in sodium chloride 0.45% 1,000 ML IV ONE ×2
[2020-07-31 02:00] VITALS: BP 107/74
--- NOTE | 2020-07-31 04:30 | NUR ---
PATIENT HAD ANOTHER ASYMPTOMATIC RUN OF VTACH, 8 BEATS
[2020-07-31 05:36] LABS: BASOPHILS # (AUTO) 0.1 X10'3 (0-0.2); BASOPHILS % (AUTO) 0.7 % (0-1); EOSINOPHILS # (AUTO) 0.2 X10'3 (0-0.9); HEMATOCRIT 44.7 % (42.0-52.0); HEMOGLOBIN 15.1 g/dl (14.0-17.9); LYMPHOCYTES # (AUTO) 1.6 X10'3 (1.1-4.8); LYMPHOCYTES % (AUTO) 20.1 % (21-51); MEAN CORPUSCULAR HEMOGLOBIN 33.2 PG (27.0-31.0); MEAN CORPUSCULAR HGB CONC 33.8 g/dL (33.0-36.5); MEAN CORPUSCULAR VOLUME 98.5 FL (78-98); MEAN PLATELET VOLUME 10.3 FL (7.4-10.4); MONOCYTES # (AUTO) 1.1 X10'3 (0-0.9); MONOCYTES % (AUTO) 12.9 % (2-12); NEUTROPHILS # (AUTO) 5.3 X10'3 (1.8-7.7); NEUTROPHILS % (AUTO) 64.3 % (42-75); PLATELET COUNT 226 X10'3 (140-440); RED BLOOD COUNT 4.53 X10'6 (4.70-6.10); RED CELL DISTRIBUTION WIDTH 13.8 % (11.5-14.5); WHITE BLOOD COUNT 8.2 X10'3 (4.5-11.0)
[2020-07-31 06:00] VITALS: BP 128/82
--- NOTE | 2020-07-31 06:00 | NUR ---
Problems reprioritized. Patient report given, questions answered & plan of care reviewed with SP VENTURA.
[2020-07-31 06:01] LABS: ALBUMIN 3.9 G/DL (3.4-5.0); ANION GAP 10 (8-16); BLOOD UREA NITROGEN 24 MG/DL (7-18); BUN/CREATININE RATIO 19.8 (5.4-32.0); CALCIUM 9.6 MG/DL (8.5-10.1); CHLORIDE 103 MMOL/L (99-107); CREATININE 1.21 MG/DL (0.60-1.10); GLUCOSE 122 MG/DL (70-104); POTASSIUM 3.4 MMOL/L (3.5-5.1); SODIUM 141 MMOL/L (135-145); TOTAL CARBON DIOXIDE 27.7 MMOL/L (24-32); eGFR 59 ML/MIN
[2020-07-31] MEDS: K and/or MAG REPLACEMENT MC SCH ×2 (07:44→20:00)
[2020-07-31] MEDS ORDERED: metoprolol succinate 25mg (24-HOUR) SR. Tablet PO SCH (08:00)
[2020-07-31] MEDS ORDERED: iohexol 350MG/ML 100ml bottle IV ONE (08:39)
[2020-07-31] MEDS ORDERED: LIDOcaine 1% W/epiNEPHrine 1:100,000 20ml vial ONE ×2 (08:39→09:46)
[2020-07-31] MEDS ORDERED: fentaNYL/PF 50MCG/1 ML 2ML syringe ONE (08:39)
[2020-07-31] MEDS: furosemide 20 MG/2 ML vial IV SCH ×2 (08:39→21:07)
[2020-07-31] MEDS ORDERED: midazolam 2 mg/2 ml injection ONE ×2 (08:39→12:29)
[2020-07-31] MEDS ORDERED: vancomycin 1,000mg inj ONE (08:40)
[2020-07-31] MEDS: acetylcysteine 200 MG/ml 4ml vial PO SCH ×2 (08:40→21:07)
[2020-07-31] MEDS ORDERED: ceFAZolin 2gm in dextrose, iso 50 ML IV ONE ×2 (08:40→12:03)
[2020-07-31] MEDS: pantoprazole 40mg Tablet.DR PO SCH (08:43)
[2020-07-31] MEDS: aspirin 81mg tab.chew PO SCH (08:54)
[2020-07-31] MEDS ORDERED: normal saline 1000ml 1,000 ML IV ONE (13:45)
[2020-07-31] MEDS ORDERED: vancomycin/NS 1 GM ADD-VANTAGE 250 ML X 1 DOSE IV ONE (14:00)
--- NOTE | 2020-07-31 14:11 | NUR ---
Post Op: Shoulder immobilization instructions sling placed.
[2020-07-31 15:00] VITALS: BP 104/83
[2020-07-31] MEDS: vitamin D (cholecalciferol) 1,000 unit tablet PO SCH (15:01)
[2020-07-31] MEDS: atorvastatin 20mg tablet PO SCH (15:01)
--- NOTE | 2020-07-31 15:22 | NUR ---
checked on pt
[2020-07-31] MEDS: potassium Cl 20 mEq SR tablet PO PRN (16:46)
[2020-07-31 17:00] VITALS: BP 122/69
[2020-07-31] MEDS: ceFAZolin 1GM/D5W- ADD-VANTAGE 50 ML IV SCH (17:34)
--- NOTE | 2020-07-31 18:45 | NUR ---
Patient in room MED 312. I have received report from Chelsea, and had the opportunity to ask questions and assume patient care.
[2020-07-31 19:00] VITALS: BP 103/65
--- NOTE | 2020-07-31 19:55 | NUR ---
Patient had dinner more than 45 minutes ago. Will recheck at 2100.
[2020-07-31] MEDS: carvedilol 6.25mg tablet PO SCH (21:06)
[2020-07-31] MEDS: Melatonin 3mg tablet PO SCH (21:07)
[2020-07-31] MEDS: HYDROcodone/acetaminophen 5mg/325mg tablet PO PRN (21:07)
[2020-07-31] MEDS: insulin glargine (Lantus) pen - multi-dose SQ SCH (21:14)
[2020-07-31 22:00] VITALS: BP 127/75
[2020-08-01] VITALS (7 sets, daily range): BP systolic 99–134; BP diastolic 33–83
[2020-08-01] MEDS: ceFAZolin 1GM/D5W- ADD-VANTAGE 50 ML IV SCH ×2 (00:36→08:35)
[2020-08-01] MEDS: HYDROcodone/acetaminophen 5mg/325mg tablet PO PRN ×2 (03:57→13:24)
[2020-08-01 06:15] LABS: BASOPHILS % (AUTO) 0.4 % (0-1); EOSINOPHILS # (AUTO) 0.4 X10'3 (0-0.9); EOSINOPHILS % (AUTO) 3.9 % (0-6); HEMATOCRIT 43.5 % (42.0-52.0); HEMOGLOBIN 14.5 g/dl (14.0-17.9); LYMPHOCYTES % (AUTO) 11.3 % (21-51); MEAN CORPUSCULAR HEMOGLOBIN 32.9 PG (27.0-31.0); MEAN CORPUSCULAR HGB CONC 33.3 g/dL (33.0-36.5); MEAN CORPUSCULAR VOLUME 98.7 FL (78-98); MONOCYTES # (AUTO) 1.2 X10'3 (0-0.9); MONOCYTES % (AUTO) 12.8 % (2-12); NEUTROPHILS # (AUTO) 6.6 X10'3 (1.8-7.7); NEUTROPHILS % (AUTO) 71.6 % (42-75); PLATELET COUNT 185 X10'3 (140-440); RED BLOOD COUNT 4.41 X10'6 (4.70-6.10); RED CELL DISTRIBUTION WIDTH 14.1 % (11.5-14.5); WHITE BLOOD COUNT 9.2 X10'3 (4.5-11.0)
[2020-08-01 06:36] LABS: ALBUMIN 3.5 G/DL (3.4-5.0); ANION GAP 8 (8-16); BLOOD UREA NITROGEN 24 MG/DL (7-18); BUN/CREATININE RATIO 17.6 (5.4-32.0); CALCIUM 9.6 MG/DL (8.5-10.1); CHLORIDE 103 MMOL/L (99-107); CREATININE 1.36 MG/DL (0.60-1.10); GLUCOSE 156 MG/DL (70-104); MAGNESIUM 2.4 MG/DL (1.5-2.4); POTASSIUM 3.8 MMOL/L (3.5-5.1); SODIUM 141 MMOL/L (135-145); TOTAL CARBON DIOXIDE 30.5 MMOL/L (24-32); eGFR 52 ML/MIN
--- NOTE | 2020-08-01 06:47 | NUR ---
Problems reprioritized. Patient report given to Luis A, questions answered & plan of care reviewed with .
[2020-08-01] MEDS: K and/or MAG REPLACEMENT MC SCH ×2 (08:00→20:00)
[2020-08-01] MEDS: carvedilol 6.25mg tablet PO SCH ×2 (08:00→20:59)
[2020-08-01] MEDS: furosemide 20 MG/2 ML vial IV SCH ×2 (08:00→20:59)
[2020-08-01] MEDS: pantoprazole 40mg Tablet.DR PO SCH (08:37)
[2020-08-01] MEDS: aspirin 81mg tab.chew PO SCH (08:37)
[2020-08-01] MEDS: vitamin D (cholecalciferol) 1,000 unit tablet PO SCH (08:37)
[2020-08-01] MEDS: atorvastatin 20mg tablet PO SCH (08:37)
[2020-08-01] MEDS: insulin Lispro (HumaLOG) vial - multi-dose SQ SCH ×2 (08:51→13:58)
[2020-08-01] MEDS: acetylcysteine 200 MG/ml 4ml vial PO SCH ×2 (08:52→21:00)
--- NOTE | 2020-08-01 13:50 | NUR ---
Initial: Pt admit DX acute systolic heart failure EF 25% resolved w/ lasix per MD note. DX CKD III, hyperlipidemia, and T2DM hx per EMR. S/p AICD placement yesterday per EMR. PO mostly 75-100% avg heart healthy meals w/ decrease to ~25% though some of PO documentation may have been NPO status; overall likely meeting needs given PO. LBM 07/31. Will continue to monitor. Rec: 1. continue heart healthy/carb controlled diet 2. monitor for ONS needs if PO declines 3. routine bowel care 4. weekly wts Addendum: 08/01/20 at [address] Amended: Links added.
--- NOTE | 2020-08-01 19:00 | NUR ---
Patient in room MED 312. I have received report from Luis A, and had the opportunity to ask questions and assume patient care.
--- NOTE | 2020-08-01 19:18 | NUR ---
patient had his dinner over 45 minutes, went for x-ray. Will recheck his blood sugar at 2100.
[2020-08-01] MEDS: Melatonin 3mg tablet PO SCH (20:59)
[2020-08-01] MEDS: potassium Cl 20 mEq SR tablet PO PRN (21:07)
[2020-08-01] MEDS: insulin glargine (Lantus) pen - multi-dose SQ SCH (21:19)
[2020-08-02 02:00] VITALS: BP 111/55
[2020-08-02 02:46] LABS: BASOPHILS # (AUTO) 0.1 X10'3 (0-0.2); BASOPHILS % (AUTO) 0.6 % (0-1); EOSINOPHILS # (AUTO) 0.6 X10'3 (0-0.9); HEMATOCRIT 44.5 % (42.0-52.0); LYMPHOCYTES # (AUTO) 1.3 X10'3 (1.1-4.8); LYMPHOCYTES % (AUTO) 14.3 % (21-51); MEAN CORPUSCULAR HEMOGLOBIN 33.3 PG (27.0-31.0); MEAN CORPUSCULAR HGB CONC 33.7 g/dL (33.0-36.5); MEAN CORPUSCULAR VOLUME 98.7 FL (78-98); MEAN PLATELET VOLUME 10.1 FL (7.4-10.4); MONOCYTES # (AUTO) 1.1 X10'3 (0-0.9); MONOCYTES % (AUTO) 11.4 % (2-12); NEUTROPHILS # (AUTO) 6.4 X10'3 (1.8-7.7); NEUTROPHILS % (AUTO) 67.7 % (42-75); PLATELET COUNT 189 X10'3 (140-440); RED BLOOD COUNT 4.51 X10'6 (4.70-6.10); RED CELL DISTRIBUTION WIDTH 13.8 % (11.5-14.5); WHITE BLOOD COUNT 9.4 X10'3 (4.5-11.0)
[2020-08-02 02:53] LABS: ALBUMIN 3.6 G/DL (3.4-5.0); ANION GAP 4 (8-16); BLOOD UREA NITROGEN 26 MG/DL (7-18); BUN/CREATININE RATIO 19.5 (5.4-32.0); CALCIUM 9.4 MG/DL (8.5-10.1); CHLORIDE 102 MMOL/L (99-107); CREATININE 1.33 MG/DL (0.60-1.10); GLUCOSE 142 MG/DL (70-104); MAGNESIUM 2.2 MG/DL (1.5-2.4); POTASSIUM 3.8 MMOL/L (3.5-5.1); SODIUM 137 MMOL/L (135-145); TOTAL CARBON DIOXIDE 30.6 MMOL/L (24-32); eGFR 53 ML/MIN
[2020-08-02 06:00] VITALS: BP 103/47
--- NOTE | 2020-08-02 06:00 | NUR ---
Patient in room MED 312. I have received report from Massiel VENTURA and had the opportunity to ask questions and assume patient care.
--- NOTE | 2020-08-02 06:33 | NUR ---
Problems reprioritized. Patient report given to Andrew, questions answered & plan of care reviewed with .
[2020-08-02] MEDS: pantoprazole 40mg Tablet.DR PO SCH (07:35)
[2020-08-02] MEDS: HYDROcodone/acetaminophen 5mg/325mg tablet PO PRN (07:36)
[2020-08-02] MEDS: carvedilol 6.25mg tablet PO SCH (07:53)
[2020-08-02] MEDS: aspirin 81mg tab.chew PO SCH (07:53)
[2020-08-02] MEDS: atorvastatin 20mg tablet PO SCH (07:54)
[2020-08-02] MEDS: vitamin D (cholecalciferol) 1,000 unit tablet PO SCH (07:54)
[2020-08-02] MEDS: furosemide 20 MG/2 ML vial IV SCH (07:54)
[2020-08-02] MEDS: insulin Lispro (HumaLOG) vial - multi-dose SQ SCH (09:20)
[2020-08-02 10:00] VITALS: BP 100/68
[2020-08-02] MEDS: acetylcysteine 200 MG/ml 4ml vial PO SCH (11:15)
--- NOTE | 2020-08-02 12:40 | NUR ---
[facility]. Gave report to Christina VENTURA. Went through systems and latest BG which was 178 prior to lunch he was not able to eat because [employer] was ready to take him . She stated understanding. Gave pt Diabetes Survival Skills and Post Pacemaker care. The education was given to pt for him to read. Pt has remained stable VSS. IV removed and had no s/s of complications. Pacemaker site CDI and no s/s of complications. All belongings accounted for. Pt had a medication in pharmacy which was sent with him. He was taken by wheelchair by [employer] to their Van.
== END 2020-08-02 13:14 | DRG 226 ==
LOC: ER 16:40 → ED HOLD 21:03 → MED 3N 07-29 09:40
PROVIDERS: ADMIT Internal Medicine; ATTEND Family Medicine
PROC: 0JH609Z Insertion of Cardiac Resynchronization Defibrillator Pulse Generator into Chest Subcutaneous Tissue and Fascia, Open Approach (ICD-10-PCS; principal; 2020-07-31)
PROC: 02HL3KZ Insertion of Defibrillator Lead into Left Ventricle, Percutaneous Approach (ICD-10-PCS; 2020-07-31)
PROC: 02HK3KZ Insertion of Defibrillator Lead into Right Ventricle, Percutaneous Approach (ICD-10-PCS; 2020-07-31)
PROC: 02H63KZ Insertion of Defibrillator Lead into Right Atrium, Percutaneous Approach (ICD-10-PCS; 2020-07-31)
DX: I13.0 Hypertensive heart and chronic kidney disease with heart failure and stage 1 through stage 4 chronic kidney disease, or unspecified chronic kidney disease (principal); I50.23 Acute on chronic systolic (congestive) heart failure; I47.2 Ventricular tachycardia; I49.5 Sick sinus syndrome; I25.110 Atherosclerotic heart disease of native coronary artery with unstable angina pectoris; I42.0 Dilated cardiomyopathy; E66.9 Obesity, unspecified; E78.00 Pure hypercholesterolemia, unspecified; E78.5 Hyperlipidemia, unspecified; F32.9 Major depressive disorder, single episode, unspecified; I25.5 Ischemic cardiomyopathy; I27.20 Pulmonary hypertension, unspecified; I44.7 Left bundle-branch block, unspecified; J44.9 Chronic obstructive pulmonary disease, unspecified; Z60.2 Problems related to living alone; Z20.828 Contact with and (suspected) exposure to other viral communicable diseases; K21.9 Gastro-esophageal reflux disease without esophagitis; M19.90 Unspecified osteoarthritis, unspecified site; N18.30 Chronic kidney disease, stage 3 unspecified; E11.22 Type 2 diabetes mellitus with diabetic chronic kidney disease; I25.2 Old myocardial infarction; Z79.82 Long term (current) use of aspirin; Z79.899 Other long term (current) drug therapy; Z80.8 Family history of malignant neoplasm of other organs or systems; Z82.5 Family history of asthma and other chronic lower respiratory diseases; Z82.49 Family history of ischemic heart disease and other diseases of the circulatory system; Z83.3 Family history of diabetes mellitus; Z79.4 Long term (current) use of insulin; Z87.442 Personal history of urinary calculi; Z87.891 Personal history of nicotine dependence; Z95.1 Presence of aortocoronary bypass graft; Z68.31 Body mass index [BMI] 31.0-31.9, adult; Z88.7 Allergy status to serum and vaccine; Z83.42 Family history of familial hypercholesterolemia
CPT/HCPCS: 33225; 33249; 36415; 71045; 71046; 80048; 80053; 82948; 83036; 83735; 83880; 84484; 85025; 87081; 87635; 93005; 93308; 94640; 94760; 96372; 96374; 96375; 97110; 97161; 97530; 99152; 99153; 99285; A4565; A4620; A6449; C1769; C1777; C1882; C1887; C1894; C1895; C1900; C9803; G0378; J0690; J1650; J1815; J1940; J2250; J2270; J3010; J3370; J3475; J7030; J7512; Q9967

== ENCOUNTER 2021-08-03 14:42 | Inpatient (IN) | payer OTHER, MEDICARE ==
[~2021-08-03] VITALS: Ht 185.4 cm; Wt 96.8 kg
[~2021-08-03 14:42] MED LIST changes: -FURO20TA4 PO; +LISI-642 PO; -LISI-643 PO; +METF500T PO; -METO-395 PO; +SEMA1PEN; +SPIR25TA PO; -SPIR25TA5 PO; -TIOT4MIS5 INH; -VENL-190 PO
[2021-08-03 16:43] LABS: HEMATOCRIT 51.6 % (42.0-52.0); HEMOGLOBIN 16.9 g/dl (14.0-17.9); MONOCYTES # (AUTO) 0.9 X10'3 (0-0.9); NEUTROPHILS # (AUTO) 4.7 X10'3 (1.8-7.7); WHITE BLOOD COUNT 6.6 X10'3 (4.5-11.0)
[2021-08-03 16:46] LABS: BASOPHILS % (AUTO) 0.2 % (0-1); EOSINOPHILS % (AUTO) 0.7 % (0-6); LYMPHOCYTES % (AUTO) 14.6 % (21-51); MEAN CORPUSCULAR HEMOGLOBIN 31.6 PG (27.0-31.0); MEAN CORPUSCULAR HGB CONC 32.7 g/dL (33.0-36.5); MEAN CORPUSCULAR VOLUME 96.6 FL (78-98); MEAN PLATELET VOLUME 10.2 FL (7.4-10.4); MONOCYTES % (AUTO) 13.4 % (2-12); NEUTROPHILS % (AUTO) 71.1 % (42-75); PLATELET COUNT 137 X10'3 (140-440); RED BLOOD COUNT 5.34 X10'6 (4.70-6.10); RED CELL DISTRIBUTION WIDTH 16.3 % (11.5-14.5)
[2021-08-03 16:57] LABS: PARTIAL THROMBOPLASTIN TIME 30 SECONDS (22-32)
[2021-08-03 17:08] LABS: ALANINE AMINOTRANSFERASE 287 U/L (12-78); ALBUMIN 3.6 G/DL (3.4-5.0); ALKALINE PHOSPHATASE 320 IU/L (46-116); ANION GAP 9 (8-16); ASPARTATE AMINO TRANSFERASE 77 U/L (10-37); BILIRUBIN,TOTAL 4.3 MG/DL (0.1-1.0); BLOOD UREA NITROGEN 26 MG/DL (7-18); BUN/CREATININE RATIO 15.1 (5.4-32.0); CHLORIDE 101 MMOL/L (99-107); CREATININE 1.72 MG/DL (0.60-1.10); GLUCOSE 146 MG/DL (70-104); POTASSIUM 4.2 MMOL/L (3.5-5.1); SODIUM 138 MMOL/L (135-145); TOTAL CARBON DIOXIDE 27.6 MMOL/L (24-32); eGFR 39 ML/MIN
[2021-08-03 17:16] LABS: LIPASE < 50 U/L (73-393)
[2021-08-03 17:18] LABS: TOTAL PROTEIN 7.2 G/DL (6.4-8.2)
[2021-08-03 18:14] LABS: LARGE PLATELETS MODERATE; PLATELET ESTIMATE NORMAL
[2021-08-03] MEDS ORDERED: magnesium 4gm in 100ml NS 100 ML IV PRN (20:50)
[2021-08-03] MEDS ORDERED: potassium CL 10mEq/100ml bag 100 ML IV PRN (20:50)
[2021-08-03] MEDS ORDERED: magnesium Cl slow-release 64mg tablet PO PRN (20:50)
[2021-08-03] MEDS ORDERED: potassium Cl 20 mEq SR tablet PO PRN ×2 (20:50)
[2021-08-03] MEDS ORDERED: magnesium 2GM in 50ml NS 50 ML IV PRN (20:50)
[2021-08-03] MEDS ORDERED: acetaminophen 325mg tablet PO PRN ×2 (20:50)
[2021-08-03] MEDS ORDERED: ondansetron/PF 4mg/2ml inj IV PRN (20:50)
[2021-08-03] MEDS ORDERED: temazepam 15mg capsule PO PRN (21:00)
[2021-08-03 21:40] LABS: MAGNESIUM 2.3 MG/DL (1.5-2.4); POTASSIUM 4.2 MMOL/L (3.5-5.1)
[2021-08-03] MEDS: morphine 2 MG/ML inj. syringe IV PRN (22:23)
[2021-08-04] MEDS: heparin, porcine 5000 units/ml vial SQ SCH ×4 (00:50→23:53)
[2021-08-04] MEDS: K and/or MAG REPLACEMENT MC SCH (08:00)
[2021-08-04] MEDS ORDERED: furosemide 40mg/4ml inj IV SCH (08:00)
[2021-08-04 08:55] LABS: GLUCOSE 102 MG/DL (70-104)
[2021-08-04 08:57] LABS: ALANINE AMINOTRANSFERASE 239 U/L (12-78); ALBUMIN 3.1 G/DL (3.4-5.0); ALBUMIN/GLOBULIN RATIO 0.9 (1.1-1.5); ALKALINE PHOSPHATASE 268 IU/L (46-116); ANION GAP 13 (8-16); ASPARTATE AMINO TRANSFERASE 85 U/L (10-37); BILIRUBIN,TOTAL 4.7 MG/DL (0.1-1.0); BLOOD UREA NITROGEN 30 MG/DL (7-18); BUN/CREATININE RATIO 16.4 (5.4-32.0); CALCIUM 8.8 MG/DL (8.5-10.1); CHLORIDE 100 MMOL/L (99-107); CREATININE 1.83 MG/DL (0.60-1.10); POTASSIUM 4.9 MMOL/L (3.5-5.1); SODIUM 137 MMOL/L (135-145); TOTAL CARBON DIOXIDE 23.7 MMOL/L (24-32); TOTAL PROTEIN 6.4 G/DL (6.4-8.2); eGFR 36 ML/MIN
[2021-08-04] MEDS: furosemide 40mg/4ml inj IV SCH ×2 (09:00→20:10)
[2021-08-04 09:24] LABS: BASOPHILS % (AUTO) 0.3 % (0-1); RED BLOOD COUNT 5.13 X10'6 (4.70-6.10); RED CELL DISTRIBUTION WIDTH 16.3 % (11.5-14.5)
[2021-08-04 09:26] LABS: EOSINOPHILS % (AUTO) 0.6 % (0-6); HEMATOCRIT 49.7 % (42.0-52.0); HEMOGLOBIN 16.3 g/dl (14.0-17.9); LYMPHOCYTES # (AUTO) 1.2 X10'3 (1.1-4.8); LYMPHOCYTES % (AUTO) 16.4 % (21-51); MEAN CORPUSCULAR HEMOGLOBIN 31.8 PG (27.0-31.0); MEAN CORPUSCULAR HGB CONC 32.9 g/dL (33.0-36.5); MEAN CORPUSCULAR VOLUME 96.8 FL (78-98); MEAN PLATELET VOLUME 10.1 FL (7.4-10.4); MONOCYTES # (AUTO) 0.9 X10'3 (0-0.9); MONOCYTES % (AUTO) 12.1 % (2-12); NEUTROPHILS % (AUTO) 70.6 % (42-75); PLATELET COUNT 131 X10'3 (140-440)
[2021-08-04 10:54] LABS: CLARITY,URINE CLEAR (Clear)
[2021-08-04 10:57] LABS: COLOR,URINE AMBER (Yellow); UA COLLECTION TYPE URINAL
[2021-08-04 11:01] LABS: BACTERIA,URINE FEW /HPF (Neg); COARSE GRANULAR CAST 0-3 /LPF (NEGATIVE); MUCUS STRANDS FEW /LPF (Neg); RBC,URINE 0-2 /HPF (0-2); SQUAMOUS EPITHELIAL CELL,UR FEW /LPF (FEW); WBC,URINE 0-4 /HPF (0-4)
[2021-08-04] MEDS ORDERED: magnesium 2GM in 50ml NS 50 ML IV ONE (13:05)
[2021-08-04] MEDS: carvedilol 6.25mg tablet PO SCH ×2 (13:40→20:10)
--- NOTE | 2021-08-04 20:00 | NUR ---
Nurse Kayli from ER called to give report on patient going to room 4254N, all questions were answered. Awaiting for patient.
[2021-08-04 20:25] VITALS: BP 109/70
--- NOTE | 2021-08-04 20:25 | NUR ---
Patient arrived to U 3023C via gurney, able to ambulate and transfer to hospital bed without difficulty. AAOX4, Denies any pain or discomfort at this time. 71 yrs old male Dx: increase weakness, CHF, Transaminitis (High levels of certain liver enzyme). Hx: DM2, CHF, COPD, AFIb, HTN, CABG X 4, Stents, Kidney stone removal per patient. 2 RN skin assessment and MRSA swab completed. Safety measures and comfort maintained. Will continue to monitor.
[2021-08-04] MEDS: HYDROcodone/acetaminophen 5mg/325mg tablet PO PRN (22:27)
[2021-08-05] VITALS (8 sets, daily range): BP systolic 85–138; BP diastolic 56–96
--- NOTE | 2021-08-05 06:30 | NUR ---
Problems reprioritized. Patient report given, questions answered & plan of care reviewed with LORENZO Gan.
--- NOTE | 2021-08-05 06:38 | NUR ---
Patient in room PCU 3023. I have received report from Ly VENTURA traveler and had the opportunity to ask questions and assume patient care.
[2021-08-05] MEDS: K and/or MAG REPLACEMENT MC SCH ×3 (07:31→20:00)
[2021-08-05] MEDS: carvedilol 6.25mg tablet PO SCH ×2 (08:00→19:40)
[2021-08-05] MEDS: heparin, porcine 5000 units/ml vial SQ SCH ×2 (08:00→15:27)
[2021-08-05 08:01] LABS: NEUTROPHILS # (AUTO) 4.7 X10'3 (1.8-7.7)
[2021-08-05 08:03] LABS: BASOPHILS % (AUTO) 0.3 % (0-1); EOSINOPHILS # (AUTO) 0.2 X10'3 (0-0.9); EOSINOPHILS % (AUTO) 2.2 % (0-6); HEMATOCRIT 49.3 % (42.0-52.0); HEMOGLOBIN 15.5 g/dl (14.0-17.9); LYMPHOCYTES # (AUTO) 1.1 X10'3 (1.1-4.8); MEAN CORPUSCULAR HEMOGLOBIN 31.2 PG (27.0-31.0); MEAN CORPUSCULAR HGB CONC 31.5 g/dL (33.0-36.5); MEAN CORPUSCULAR VOLUME 98.8 FL (78-98); MONOCYTES % (AUTO) 13.9 % (2-12); NEUTROPHILS % (AUTO) 67.6 % (42-75); PLATELET COUNT 103 X10'3 (140-440); RED BLOOD COUNT 4.99 X10'6 (4.70-6.10); RED CELL DISTRIBUTION WIDTH 16.7 % (11.5-14.5)
[2021-08-05 09:56] LABS: ALANINE AMINOTRANSFERASE 204 U/L (12-78); ALBUMIN 2.9 G/DL (3.4-5.0); ALBUMIN/GLOBULIN RATIO 0.9 (1.1-1.5); ALKALINE PHOSPHATASE 243 IU/L (46-116); ANION GAP 10 (8-16); ASPARTATE AMINO TRANSFERASE 76 U/L (10-37); BILIRUBIN,TOTAL 3.4 MG/DL (0.1-1.0); BLOOD UREA NITROGEN 37 MG/DL (7-18); BUN/CREATININE RATIO 17.6 (5.4-32.0); CALCIUM 8.6 MG/DL (8.5-10.1); CHLORIDE 98 MMOL/L (99-107); GLUCOSE 125 MG/DL (70-104); SODIUM 134 MMOL/L (135-145); TOTAL CARBON DIOXIDE 25.8 MMOL/L (24-32); eGFR 31 ML/MIN
[2021-08-05 09:58] LABS: POTASSIUM 4.3 MMOL/L (3.5-5.1)
[2021-08-05] MEDS: furosemide 40mg/4ml inj IV SCH ×2 (10:58→19:41)
--- NOTE | 2021-08-05 13:12 | NUR ---
Problems reprioritized. Patient report given, questions answered & plan of care reviewed with Lina VENTURA.
[2021-08-05] MEDS: DOBUTamine-DoBUTrex 500mg/D5W 250 ML IV SCH (13:19)
[2021-08-05] MEDS ORDERED: heparin 10,000 units/1 ML INJ IV ONE (16:55)
[2021-08-05] MEDS ORDERED: heparin 10,000 units/1 ML INJ IV PRN (16:55)
[2021-08-05 17:29] LABS: PARTIAL THROMBOPLASTIN TIME 36 SECONDS (22-32)
[2021-08-05] MEDS: heparin 25,000 UNIT/250ml bag 250 ML IV SCH (17:58)
--- NOTE | 2021-08-05 18:37 | NUR ---
Problems reprioritized. Patient report given, questions answered & plan of care reviewed with Tiffany VENTURA.
[2021-08-06] VITALS (9 sets, daily range): BP systolic 93–119; BP diastolic 62–86
[2021-08-06] MEDS: HYDROcodone/acetaminophen 5mg/325mg tablet PO PRN (03:40)
[2021-08-06 06:37] LABS: BASOPHILS % (AUTO) 0.2 % (0-1); EOSINOPHILS # (AUTO) 0.1 X10'3 (0-0.9); HEMATOCRIT 48.2 % (42.0-52.0); HEMOGLOBIN 15.5 g/dl (14.0-17.9); LYMPHOCYTES # (AUTO) 0.8 X10'3 (1.1-4.8); LYMPHOCYTES % (AUTO) 13.9 % (21-51); MEAN CORPUSCULAR HEMOGLOBIN 31.3 PG (27.0-31.0); MEAN CORPUSCULAR HGB CONC 32.2 g/dL (33.0-36.5); MEAN CORPUSCULAR VOLUME 97.2 FL (78-98); MONOCYTES # (AUTO) 0.9 X10'3 (0-0.9); NEUTROPHILS % (AUTO) 68.9 % (42-75); PLATELET COUNT 90 X10'3 (140-440); RED BLOOD COUNT 4.96 X10'6 (4.70-6.10); RED CELL DISTRIBUTION WIDTH 16.3 % (11.5-14.5); WHITE BLOOD COUNT 5.8 X10'3 (4.5-11.0)
--- NOTE | 2021-08-06 06:49 | NUR ---
Patient in room PCU 3023. I have received report from Radha VENTURA and had the opportunity to ask questions and assume patient care.
[2021-08-06 07:00] LABS: ALANINE AMINOTRANSFERASE 181 U/L (12-78); ALBUMIN 2.7 G/DL (3.4-5.0); ALBUMIN/GLOBULIN RATIO 0.8 (1.1-1.5); ALKALINE PHOSPHATASE 231 IU/L (46-116); ANION GAP 11 (8-16); ASPARTATE AMINO TRANSFERASE 62 U/L (10-37); BLOOD UREA NITROGEN 37 MG/DL (7-18); BUN/CREATININE RATIO 15.3 (5.4-32.0); CALCIUM 8.6 MG/DL (8.5-10.1); CHLORIDE 99 MMOL/L (99-107); CREATININE 2.42 MG/DL (0.60-1.10); GLUCOSE 132 MG/DL (70-104); SODIUM 136 MMOL/L (135-145); TOTAL CARBON DIOXIDE 26.1 MMOL/L (24-32); TOTAL PROTEIN 5.9 G/DL (6.4-8.2); eGFR 26 ML/MIN
[2021-08-06] MEDS: heparin 25,000 UNIT/250ml bag 250 ML IV SCH ×2 (07:38→21:10)
[2021-08-06] MEDS: K and/or MAG REPLACEMENT MC SCH ×3 (08:00→20:00)
[2021-08-06 08:25] LABS: ANISOCYTOSIS 1+; GIANT PLATELET FEW; LARGE PLATELETS FEW; PLATELET ESTIMATE DECREASED
[2021-08-06] MEDS: carvedilol 6.25mg tablet PO SCH (09:02)
[2021-08-06] MEDS: furosemide 40mg/4ml inj IV SCH ×2 (09:02→19:37)
[2021-08-06] MEDS ORDERED: ATOR40TA71 PO (11:35)
[2021-08-06] MEDS ORDERED: CARV3.122 PO (11:35)
--- NOTE | 2021-08-06 11:44 | NUR ---
Recieved call from lab, the patients blood will be sent to [facility] for PTT testing as they are unable to obtain results here.
--- NOTE | 2021-08-06 11:48 | NUR ---
PAGER ID: [phone] MESSAGE: Recieved call from lab regarding Dayron Payne room 8296U. His blood will be sent to [facility] for PTT testing as they are unable to obtain results here. Please advise Leny [phone]
[2021-08-06] MEDS ORDERED: SALI45SP PO (12:09)
[2021-08-06] MEDS ORDERED: POLY15DR31 EACHEYE (12:09)
[2021-08-06] MEDS ORDERED: ASPI81TA47 PO (12:09)
[2021-08-06] MEDS ORDERED: KETO5DRO11 EACHEYE (12:16)
[2021-08-06] MEDS ORDERED: MELA1TAB28 PO (12:16)
[2021-08-06] MEDS ORDERED: FEXO-62 PO (12:16)
[2021-08-06] MEDS ORDERED: TRAZ-251 PO (12:16)
[2021-08-06] MEDS ORDERED: VENL150T3 PO (12:16)
[2021-08-06] MEDS ORDERED: EMPA25TA PO (12:16)
--- NOTE | 2021-08-06 13:42 | NUR ---
Please place an extended and a PIV in [facility] Room 0955F. I cant obtain access and he needs dobutamine and heparin. Thanks.
[2021-08-06] MEDS: DOBUTamine-DoBUTrex 500mg/D5W 250 ML IV SCH (16:47)
--- NOTE | 2021-08-06 18:52 | NUR ---
Problems reprioritized. Patient report given, questions answered & plan of care reviewed with Jadiel VENTURA.
--- NOTE | 2021-08-06 19:11 | NUR ---
Dr. Donis paged about patient critical ptt 124.5 results. Instructed by MD to follow protocol.
[2021-08-06] MEDS: amiodarone 200mg tablet PO SCH (19:37)
[2021-08-07 02:00] VITALS: BP 97/58
[2021-08-07 03:45] LABS: BASOPHILS % (AUTO) 0.2 % (0-1); EOSINOPHILS # (AUTO) 0.1 X10'3 (0-0.9); EOSINOPHILS % (AUTO) 1.3 % (0-6); HEMATOCRIT 46.6 % (42.0-52.0); LYMPHOCYTES # (AUTO) 0.7 X10'3 (1.1-4.8); LYMPHOCYTES % (AUTO) 13.2 % (21-51); MEAN CORPUSCULAR HEMOGLOBIN 31.1 PG (27.0-31.0); MEAN CORPUSCULAR HGB CONC 32.1 g/dL (33.0-36.5); MEAN CORPUSCULAR VOLUME 96.7 FL (78-98); MEAN PLATELET VOLUME 10.8 FL (7.4-10.4); MONOCYTES # (AUTO) 0.7 X10'3 (0-0.9); NEUTROPHILS % (AUTO) 72.3 % (42-75); PLATELET COUNT 104 X10'3 (140-440); RED BLOOD COUNT 4.81 X10'6 (4.70-6.10); RED CELL DISTRIBUTION WIDTH 16.4 % (11.5-14.5); WHITE BLOOD COUNT 5.6 X10'3 (4.5-11.0)
[2021-08-07 04:09] LABS: ALANINE AMINOTRANSFERASE 159 U/L (12-78); ALBUMIN 2.8 G/DL (3.4-5.0); ALBUMIN/GLOBULIN RATIO 0.9 (1.1-1.5); ALKALINE PHOSPHATASE 225 IU/L (46-116); ANION GAP 9 (8-16); ASPARTATE AMINO TRANSFERASE 44 U/L (10-37); BILIRUBIN,TOTAL 2.6 MG/DL (0.1-1.0); BLOOD UREA NITROGEN 39 MG/DL (7-18); BUN/CREATININE RATIO 16.4 (5.4-32.0); CALCIUM 8.4 MG/DL (8.5-10.1); CHLORIDE 98 MMOL/L (99-107); CREATININE 2.38 MG/DL (0.60-1.10); GLUCOSE 128 MG/DL (70-104); POTASSIUM 3.3 MMOL/L (3.5-5.1); SODIUM 135 MMOL/L (135-145); TOTAL CARBON DIOXIDE 28.5 MMOL/L (24-32); eGFR 27 ML/MIN
[2021-08-07] MEDS ORDERED: potassium Cl 20 mEq SR tablet PO PRN (05:00)
[2021-08-07] MEDS ORDERED: potassium Cl 40MEQ/1/2NS 520ml 520 ML IV PRN (05:00)
[2021-08-07] MEDS ORDERED: potassium CL 10mEq/100ml bag 100 ML IV PRN (05:05)
[2021-08-07] MEDS: potassium Cl 20 mEq SR tablet PO PRN ×4 (05:12→17:13)
[2021-08-07 07:00] VITALS: BP_SYST 106; BP_SYST 130; BP_DIAS 61; BP_DIAS 74
--- NOTE | 2021-08-07 07:04 | NUR ---
Notified by karina Sexton at 0703 that they are having problems running patient's PTT and therefore will be sending specimen to [facility]'s lab.
--- NOTE | 2021-08-07 07:08 | NUR ---
Patient in room PCU 3023. I have received report from Jadiel and had the opportunity to ask questions and assume patient care.
[2021-08-07] MEDS: K and/or MAG REPLACEMENT MC SCH ×3 (08:00→20:00)
[2021-08-07] MEDS: amiodarone 200mg tablet PO SCH ×2 (09:13→22:53)
[2021-08-07] MEDS: furosemide 40mg/4ml inj IV SCH ×3 (09:17→18:00)
[2021-08-07] MEDS: morphine 2 MG/ML inj. syringe IV PRN (09:30)
--- NOTE | 2021-08-07 10:36 | NUR ---
Dr. Jones made aware via spok that patient's PTT is not resulted after holding the infusion and labs draws X2, and labs want to know how long can the Heparin infusion be held before the it can be drawn again. Awaiting response.
[2021-08-07 10:49] LABS: MAGNESIUM 2.3 MG/DL (1.5-2.4)
[2021-08-07 11:00] VITALS: BP 119/78
--- NOTE | 2021-08-07 11:25 | NUR ---
Spoke with Dr. Jones, heparin drip d/c, Lovenox 100mg daily. Labs and charge nurse made aware.
--- NOTE | 2021-08-07 12:29 | NUR ---
Initial: Pt admit for acute exacerbation of chronic systolic CHF with transaminitis secondary to CHF. Currently on a heart healthy diet with fluctuating PO intake, documented with average 58% PO intake throughout LOS though with 100% PO intake at two most recent meals. No nutrition intervention implemented at this time given recent PO intake. [facility] 08/05. Will continue to follow and make recommendations as appropriate pending further trends in PO intake. Recommendations: 1) Continue heart healthy diet 2) Bowel care PRN 3) Scaled weight this admit; weekly scaled weights thereafter Addendum: 08/07/21 at [address]rí[address]uez RD Amended: Links added.
[2021-08-07] MEDS ORDERED: polyvinyl alcohol ophthalmic drops 15ml bottle EACHEYE PRN (12:30)
[2021-08-07] MEDS ORDERED: tetrahydrozoline 0.05% 15ml ophthalmic drops EACHEYE PRN (12:35)
--- NOTE | 2021-08-07 12:41 | NUR ---
Patient had 17 beats of V-tachy this at 0836. Seen by medical sonographer TIMBO Jimenez. Orders received to keep magnesium level above 2 and potassium level above 3.5. Magnesium levels add on to previous lab draws read-2.3. Patient is supplemented for potassium per protocol for potassium level-3.3. Plan of care will continue.
[2021-08-07] MEDS: enoxaparin 100mg/ml syringe SUBCUT SCH (13:22)
[2021-08-07] MEDS: venlafaxine XR 75mg capsule (Q24H) PO SCH (13:23)
[2021-08-07] MEDS: DOBUTamine-DoBUTrex 500mg/D5W 250 ML IV SCH (13:35)
[2021-08-07] MEDS ORDERED: ondansetron 4mg rapidly disintigrating tab PO PRN ×2 (14:10)
[2021-08-07 15:00] VITALS: BP 105/67
[2021-08-07 18:00] VITALS: BP 94/69
--- NOTE | 2021-08-07 18:32 | NUR ---
Provider made aware via spok that patient's whose Heparin drip was d/c this morning PTT was later resulted as 200. Please advice. Receiving nurse made aware.
--- NOTE | 2021-08-07 19:08 | NUR ---
Problems reprioritized. Patient report given, questions answered & plan of care reviewed with Jadiel.
[2021-08-07] MEDS: Melatonin 3mg tablet PO SCH (20:35)
[2021-08-07] MEDS: traZODone 50mg tablet PO SCH (20:35)
[2021-08-07 22:00] VITALS: BP 109/70
[2021-08-08] VITALS (7 sets, daily range): BP systolic 96–116; BP diastolic 53–85
[2021-08-08] MEDS: HYDROcodone/acetaminophen 5mg/325mg tablet PO PRN ×2 (01:39→14:35)
[2021-08-08] MEDS: DOBUTamine-DoBUTrex 500mg/D5W 250 ML IV SCH ×2 (03:13→20:26)
--- NOTE | 2021-08-08 06:40 | NUR ---
Problems reprioritized. Patient report given, questions answered & plan of care reviewed with LORENZO Renteria.
--- NOTE | 2021-08-08 07:04 | NUR ---
Patient in room PCU 3023. I have received report from Jadiel and had the opportunity to ask questions and assume patient care.
[2021-08-08] MEDS: K and/or MAG REPLACEMENT MC SCH ×2 (08:00→20:00)
[2021-08-08] MEDS: furosemide 40mg/4ml inj IV SCH ×2 (08:28→21:22)
[2021-08-08] MEDS: venlafaxine XR 75mg capsule (Q24H) PO SCH (08:29)
[2021-08-08] MEDS: loratadine 10mg tablet PO SCH (08:29)
[2021-08-08] MEDS: multivitamins, therapeutics tablet PO SCH (08:30)
[2021-08-08] MEDS: atorvastatin 20mg tablet PO SCH (08:30)
[2021-08-08] MEDS: aspirin 81mg, enteric-coated 1 TAB TABLET.DR PO SCH (08:30)
[2021-08-08] MEDS: enoxaparin 100mg/ml syringe SUBCUT SCH (08:32)
[2021-08-08] MEDS: amiodarone 200mg tablet PO SCH ×2 (08:34→21:27)
[2021-08-08 09:20] LABS: LYMPHOCYTES # (AUTO) 0.8 X10'3 (1.1-4.8); MEAN CORPUSCULAR HEMOGLOBIN 31.2 PG (27.0-31.0); MONOCYTES # (AUTO) 0.8 X10'3 (0-0.9); NEUTROPHILS # (AUTO) 3.8 X10'3 (1.8-7.7)
[2021-08-08 09:22] LABS: BASOPHILS % (AUTO) 0.3 % (0-1); EOSINOPHILS % (AUTO) 0.9 % (0-6); LYMPHOCYTES % (AUTO) 14.8 % (21-51); MEAN CORPUSCULAR HGB CONC 32.6 g/dL (33.0-36.5); MEAN CORPUSCULAR VOLUME 95.8 FL (78-98); MEAN PLATELET VOLUME 10.4 FL (7.4-10.4); MONOCYTES % (AUTO) 14.5 % (2-12); NEUTROPHILS % (AUTO) 69.5 % (42-75); RED CELL DISTRIBUTION WIDTH 16.5 % (11.5-14.5); WHITE BLOOD COUNT 5.5 X10'3 (4.5-11.0)
[2021-08-08 09:44] LABS: ALANINE AMINOTRANSFERASE 138 U/L (12-78); ALBUMIN 2.9 G/DL (3.4-5.0); ALBUMIN/GLOBULIN RATIO 0.9 (1.1-1.5); ALKALINE PHOSPHATASE 204 IU/L (46-116); ANION GAP 9 (8-16); ASPARTATE AMINO TRANSFERASE 46 U/L (10-37); BILIRUBIN,TOTAL 2.6 MG/DL (0.1-1.0); BLOOD UREA NITROGEN 40 MG/DL (7-18); BUN/CREATININE RATIO 16.9 (5.4-32.0); CALCIUM 8.8 MG/DL (8.5-10.1); CHLORIDE 99 MMOL/L (99-107); CREATININE 2.36 MG/DL (0.60-1.10); GLUCOSE 132 MG/DL (70-104); POTASSIUM 4.3 MMOL/L (3.5-5.1); SODIUM 137 MMOL/L (135-145); TOTAL CARBON DIOXIDE 29.5 MMOL/L (24-32); TOTAL PROTEIN 6.1 G/DL (6.4-8.2); eGFR 27 ML/MIN
[2021-08-08 10:03] LABS: PLATELET COUNT 92 X10'3 (140-440)
[2021-08-08 10:49] LABS: ANISOCYTOSIS 1+; PLATELET ESTIMATE DECREASED
--- NOTE | 2021-08-08 19:10 | NUR ---
Problems reprioritized. Patient report given, questions answered & plan of care reviewed with Florance.
[2021-08-08] MEDS ORDERED: warfarin 2.5mg tablet PO ONE (21:00)
[2021-08-08] MEDS ORDERED: warfarin 4mg tablet PO ONE (21:00)
[2021-08-08] MEDS: traZODone 50mg tablet PO SCH (21:24)
[2021-08-08] MEDS: Melatonin 3mg tablet PO SCH (21:25)
[2021-08-09 02:00] VITALS: BP 97/58
[2021-08-09] MEDS: furosemide 40mg/4ml inj IV SCH ×2 (06:13→18:00)
--- NOTE | 2021-08-09 06:30 | NUR ---
Patient in room PCU 3023. I have received report from Radha VENTURA and had the opportunity to ask questions and assume patient care. Pt semi fowlers, alert to voice, breathing even, dobutamine at 5mcgs. no s/sx acute distress.
[2021-08-09 07:00] VITALS: BP 99/63
[2021-08-09 07:35] LABS: ANION GAP 9 (8-16); BLOOD UREA NITROGEN 43 MG/DL (7-18); BUN/CREATININE RATIO 18.5 (5.4-32.0); CALCIUM 9.1 MG/DL (8.5-10.1); CHLORIDE 99 MMOL/L (99-107); CREATININE 2.33 MG/DL (0.60-1.10); GLUCOSE 100 MG/DL (70-104); SODIUM 136 MMOL/L (135-145); TOTAL CARBON DIOXIDE 28.3 MMOL/L (24-32); eGFR 28 ML/MIN
[2021-08-09 07:36] LABS: POTASSIUM 4.4 MMOL/L (3.5-5.1)
[2021-08-09] MEDS: K and/or MAG REPLACEMENT MC SCH ×2 (08:00→19:47)
[2021-08-09] MEDS: amiodarone 200mg tablet PO SCH ×2 (08:29→20:01)
[2021-08-09] MEDS: loratadine 10mg tablet PO SCH (08:29)
[2021-08-09] MEDS: aspirin 81mg, enteric-coated 1 TAB TABLET.DR PO SCH (08:29)
[2021-08-09] MEDS: atorvastatin 20mg tablet PO SCH (08:29)
[2021-08-09] MEDS: multivitamins, therapeutics tablet PO SCH (08:29)
[2021-08-09] MEDS ORDERED: FURO40TA4 PO (08:58)
[2021-08-09] MEDS ORDERED: COUM1POW PO (08:58)
[2021-08-09] MEDS ORDERED: AMIO200T67 PO (08:58)
[2021-08-09] MEDS ORDERED: LISI2.5T14 PO (08:58)
[2021-08-09] MEDS ORDERED: ENOX100D2 SQ (08:58)
[2021-08-09] MEDS: venlafaxine XR 75mg capsule (Q24H) PO SCH (10:01)
[2021-08-09 11:00] VITALS: BP 103/70
[2021-08-09 15:00] VITALS: BP 108/63
[2021-08-09] MEDS: HYDROcodone/acetaminophen 5mg/325mg tablet PO PRN (16:25)
--- NOTE | 2021-08-09 16:33 | NUR ---
Pt needing bowel care. Dr. Jones paged. "PAGER ID: [phone] MESSAGE: RE: Dayron Brandt: 1992W: May i please have bowel care. no BM in 4 days. Pt going to rehab tomorrow. Thanks, -Summer #[id number]"
--- NOTE | 2021-08-09 17:26 | NUR ---
[place] documentation: I have reviewed and agree with all interventions, assessments performed and documented by Faviola VENTURA. [place] Medication Administration: For this medication-pass time frame, all medication were reviewed, dispensed, administered and documented per hospital policy by Faviola VENTURA.
[2021-08-09] MEDS ORDERED: magnesium hydroxide 30ml (MOM) UD suspension PO PRN (17:40)
--- NOTE | 2021-08-09 18:20 | NUR ---
Problems reprioritized. Patient report given, questions answered & plan of care reviewed with Radha VENTURA. pt sitting up eating dinner. no s/sx acute distress
[2021-08-09 19:00] VITALS: BP 102/78
[2021-08-09] MEDS: Melatonin 3mg tablet PO SCH (20:01)
[2021-08-09] MEDS: docusate sod 100mg capsule PO SCH (20:01)
[2021-08-09] MEDS: traZODone 50mg tablet PO SCH (20:01)
[2021-08-09] MEDS ORDERED: warfarin 4mg tablet PO ONE (21:00)
[2021-08-09 22:00] VITALS: BP 93/72
--- NOTE | 2021-08-10 06:10 | NUR ---
Patient in room PCU 3023. I have received report from LORENZO Garcia and had the opportunity to ask questions and assume patient care.
[2021-08-10] MEDS: furosemide 40mg/4ml inj IV SCH (07:19)
[2021-08-10] MEDS: K and/or MAG REPLACEMENT MC SCH (07:30)
[2021-08-10] MEDS: atorvastatin 20mg tablet PO SCH (07:59)
[2021-08-10] MEDS: aspirin 81mg, enteric-coated 1 TAB TABLET.DR PO SCH (07:59)
[2021-08-10] MEDS: docusate sod 100mg capsule PO SCH (08:00)
[2021-08-10] MEDS: loratadine 10mg tablet PO SCH (08:00)
[2021-08-10] MEDS: multivitamins, therapeutics tablet PO SCH (08:00)
[2021-08-10] MEDS: amiodarone 200mg tablet PO SCH (08:00)
[2021-08-10] MEDS: venlafaxine XR 75mg capsule (Q24H) PO SCH (08:01)
[2021-08-10 11:00] VITALS: BP 90/66
[2021-08-14] MEDS ORDERED: amiodarone 200mg tablet PO SCH (08:00)
== END 2021-08-10 13:45 | DRG 291 ==
LOC: ER 14:43 → ED HOLD 20:50 → PCU 3S 08-04 20:31
PROVIDERS: ADMIT Internal Medicine; ATTEND Family Medicine
PROC: 4B02XTZ Measurement of Cardiac Defibrillator, External Approach (ICD-10-PCS; principal; 2021-08-06)
DX: I13.0 Hypertensive heart and chronic kidney disease with heart failure and stage 1 through stage 4 chronic kidney disease, or unspecified chronic kidney disease (principal); I50.23 Acute on chronic systolic (congestive) heart failure; N17.9 Acute kidney failure, unspecified; R18.8 Other ascites; I47.2 Ventricular tachycardia; D68.9 Coagulation defect, unspecified; E78.5 Hyperlipidemia, unspecified; E78.00 Pure hypercholesterolemia, unspecified; D69.6 Thrombocytopenia, unspecified; E11.22 Type 2 diabetes mellitus with diabetic chronic kidney disease; K76.1 Chronic passive congestion of liver; I25.5 Ischemic cardiomyopathy; J44.9 Chronic obstructive pulmonary disease, unspecified; K21.9 Gastro-esophageal reflux disease without esophagitis; Z20.822 Contact with and (suspected) exposure to COVID-19; M85.80 Other specified disorders of bone density and structure, unspecified site; F32.A Depression, unspecified; N18.30 Chronic kidney disease, stage 3 unspecified; I51.3 Intracardiac thrombosis, not elsewhere classified; I25.10 Atherosclerotic heart disease of native coronary artery without angina pectoris; I95.9 Hypotension, unspecified; K59.00 Constipation, unspecified; E87.6 Hypokalemia; Z95.810 Presence of automatic (implantable) cardiac defibrillator; Z95.1 Presence of aortocoronary bypass graft; Z83.3 Family history of diabetes mellitus; Z80.8 Family history of malignant neoplasm of other organs or systems; Z82.5 Family history of asthma and other chronic lower respiratory diseases; Z79.899 Other long term (current) drug therapy; Z87.442 Personal history of urinary calculi; Z88.7 Allergy status to serum and vaccine; I25.2 Old myocardial infarction; Z79.82 Long term (current) use of aspirin; Z83.42 Family history of familial hypercholesterolemia
CPT/HCPCS: 36415; 36569; 71045; 74176; 76937; 80048; 80053; 81001; 82948; 83605; 83690; 83735; 83880; 84132; 84145; 84484; 85008; 85025; 85610; 85730; 87040; 87081; 87635; 93005; 93306; 93975; 97110; 97161; 97530; 99285; C9803; G0378; J1250; J1644; J1650; J1940; J2270; J2405; J3475

== ENCOUNTER 2022-03-05 12:39 | Outpatient (CLI) | payer OTHER ==
[~2022-03-05 12:39] MED LIST changes: -ALOG12.5 PO; +AMIO200T67 PO; -ASPI-1265 PO; +ASPI81TA47 PO; -ATOR20TA66 PO; +ATOR40TA71 PO; +CARV3.122 PO; -CHOL100010 PO; -COR3.125T PO; +COUM1POW PO; +EMPA25TA PO; +ENOX100D2 SQ; +FEXO-310 PO; +KETO5DRO11 EACHEYE; -LISI-642 PO; +LISI2.5T14 PO; +MELA1TAB28 PO; -MELA5TAB12 PO; -METF500T PO; -OMEP-84 PO; +POLY15DR31 EACHEYE; +SALI45SP PO; -SEMA1PEN; -SPIR25TA PO; +TRAZ-251 PO; +VENL150T3 PO
== END 2022-03-05 23:59 | disposition home or self-care (01) ==
LOC: RAD 12:39
PROVIDERS: ATTEND Chiropractor
DX: I08.3 Combined rheumatic disorders of mitral, aortic and tricuspid valves (principal); I25.9 Chronic ischemic heart disease, unspecified; I25.810 Atherosclerosis of coronary artery bypass graft(s) without angina pectoris; Z95.1 Presence of aortocoronary bypass graft; Z95.5 Presence of coronary angioplasty implant and graft
CPT/HCPCS: 93306

== ENCOUNTER 2023-01-11 18:01 | Emergency (ER) | payer OTHER ==
[~2023-01-11] VITALS: Ht 172.7 cm; Wt 100.0 kg
[~2023-01-11 18:01] MED LIST changes: +KETO-96 EACHEYE; -KETO5DRO11 EACHEYE
[2023-01-11 18:19] VITALS: BP 122/86
[2023-01-11] MEDS ORDERED: oxyCODONE/APAP 10/325mg tablet PO ONE (19:00)
[2023-01-11] MEDS ORDERED: OXYC-150 PO (19:17)
[2023-01-11] MEDS ORDERED: ibuprofen 200mg tablet PO ONE (20:25)
[2023-01-11] MEDS ORDERED: diazepam 5mg tablet PO ONE (20:25)
[2023-01-11 21:00] LABS: BASOPHILS % (AUTO) 0.3 % (0-1); EOSINOPHILS # (AUTO) 0.1 X10'3 (0-0.9); EOSINOPHILS % (AUTO) 0.5 % (0-6); HEMOGLOBIN 17.9 g/dl (14.0-17.9); LYMPHOCYTES # (AUTO) 0.6 X10'3 (1.1-4.8); LYMPHOCYTES % (AUTO) 6.1 % (21-51); MEAN CORPUSCULAR HEMOGLOBIN 33.6 PG (27.0-31.0); MEAN CORPUSCULAR HGB CONC 33.7 g/dL (33.0-36.5); MEAN CORPUSCULAR VOLUME 99.8 FL (78-98); MEAN PLATELET VOLUME 9.7 FL (7.4-10.4); MONOCYTES # (AUTO) 0.9 X10'3 (0-0.9); NEUTROPHILS # (AUTO) 8.4 X10'3 (1.8-7.7); NEUTROPHILS % (AUTO) 84.1 % (42-75); PLATELET COUNT 191 X10'3 (140-440); RED BLOOD COUNT 5.31 X10'6 (4.70-6.10); RED CELL DISTRIBUTION WIDTH 14.1 % (11.5-14.5)
[2023-01-11 21:37] LABS: ALANINE AMINOTRANSFERASE 26 U/L (12-78); ALBUMIN 3.8 G/DL (3.4-5.0); ALKALINE PHOSPHATASE 217 IU/L (46-116); ANION GAP 14 (8-16); ASPARTATE AMINO TRANSFERASE 19 U/L (10-37); BILIRUBIN,TOTAL 0.9 MG/DL (0.1-1.0); BLOOD UREA NITROGEN 21 MG/DL (7-18); BUN/CREATININE RATIO 13.3 (10.0-20.0); CALCIUM 9.5 MG/DL (8.5-10.1); CHLORIDE 102 MMOL/L (99-107); CREATININE 1.58 MG/DL (0.60-1.10); GLUCOSE 297 MG/DL (70-104); SODIUM 138 MMOL/L (135-145); TOTAL CARBON DIOXIDE 21.8 MMOL/L (24-32); TOTAL PROTEIN 7.8 G/DL (6.4-8.2); eGFR 43 ML/MIN
[2023-01-14] MEDS ORDERED: acetaminophen 325mg tablet PO ONE (01:50)
[2023-01-14] MEDS ORDERED: ketorolac trometh inj. 60 MG/2 ML VIAL IM ONE (01:50)
[2023-01-14] MEDS ORDERED: diazepam inj 5 MG/ML inj. IM ONE (01:50)
[2023-01-14] MEDS ORDERED: dexamethasone 4mg tablet PO ONE (01:50)
[2023-01-14] MEDS ORDERED: LIDOcaine 5% patch TP SCH (08:00)
== END 2023-01-11 21:25 | disposition home or self-care (01) ==
LOC: ER 18:03
DX: M79.652 Pain in left thigh (principal); S32.029A Unspecified fracture of second lumbar vertebra, initial encounter for closed fracture; S32.039A Unspecified fracture of third lumbar vertebra, initial encounter for closed fracture; I11.0 Hypertensive heart disease with heart failure; I50.9 Heart failure, unspecified; E78.00 Pure hypercholesterolemia, unspecified; J44.9 Chronic obstructive pulmonary disease, unspecified; K21.9 Gastro-esophageal reflux disease without esophagitis; E11.9 Type 2 diabetes mellitus without complications; Z88.7 Allergy status to serum and vaccine; X58.XXXA Exposure to other specified factors, initial encounter; Y93.89 Activity, other specified; Y92.89 Other specified places as the place of occurrence of the external cause; Y99.8 Other external cause status
CPT/HCPCS: 36415; 72131; 74176; 80053; 85025; 99284

== ENCOUNTER 2023-01-14 01:31 | Emergency (ER) | payer OTHER, MEDICARE ==
[~2023-01-14] VITALS: Ht 172.7 cm; Wt 100.0 kg
[~2023-01-14 01:31] MED LIST changes: +OXYC-150 PO
[2023-01-14] MEDS ORDERED: ACET650T58 PO (01:58)
[2023-01-14] MEDS ORDERED: NAPR-56 PO (01:58)
[2023-01-14 04:47] VITALS: BP 118/74
[2023-01-15] MEDS ORDERED: METH4TAB3 PO (18:59)
[2023-01-15] MEDS ORDERED: OXYC-149 PO (19:49)
== END 2023-01-14 05:51 | disposition home or self-care (01) ==
LOC: ER 01:32
DX: G89.29 Other chronic pain (principal); M54.9 Dorsalgia, unspecified; I11.0 Hypertensive heart disease with heart failure; E78.00 Pure hypercholesterolemia, unspecified; J44.9 Chronic obstructive pulmonary disease, unspecified; K21.9 Gastro-esophageal reflux disease without esophagitis; E11.9 Type 2 diabetes mellitus without complications; Z87.442 Personal history of urinary calculi; Z88.8 Allergy status to other drugs, medicaments and biological substances; Z79.899 Other long term (current) drug therapy; Z79.1 Long term (current) use of non-steroidal anti-inflammatories (NSAID); Z79.2 Long term (current) use of antibiotics
CPT/HCPCS: 99283

== ENCOUNTER 2023-01-15 18:16 | Emergency (ER) | payer OTHER, MEDICARE ==
[~2023-01-15] VITALS: Ht 172.7 cm; Wt 100.0 kg
[~2023-01-15 18:16] MED LIST changes: +ACET650T58 PO; +NAPR-56 PO
[2023-01-15] MEDS ORDERED: ondansetron 4mg rapidly disintigrating tab PO ONE (18:55)
[2023-01-15] MEDS ORDERED: morphine 4 MG/ML inj SYRINge IM ONE (18:55)
[2023-01-15] MEDS ORDERED: METH4TAB3 PO (18:59)
[2023-01-15] MEDS ORDERED: methylnaltrexone br 12mg/0.6ml inj***SubQ only SQ ONE (19:40)
[2023-01-15] MEDS ORDERED: OXYC-149 PO (19:49)
== END 2023-01-15 20:05 | disposition home or self-care (01) ==
LOC: ER 18:17
DX: G89.29 Other chronic pain (principal); M54.59 Other low back pain; N50.811 Right testicular pain; Z87.81 Personal history of (healed) traumatic fracture
CPT/HCPCS: 96372; 99284; J2212; J2270

== ENCOUNTER 2023-03-25 15:14 | Emergency (ER) | payer OTHER, MEDICARE ==
[~2023-03-25] VITALS: Ht 172.7 cm; Wt 100.0 kg
[~2023-03-25 15:14] MED LIST changes: +ACET325T55 PO; -ACET650T58 PO; +AMI200T PO; -AMIO200T67 PO; +CHOL20004 PO; -COUM1POW PO; +DOCU100C40 PO; -ENOX100D2 SQ; +FURO-150 PO; +HYDR-3964 PO; +LIDO700A32 TOP; -LISI2.5T14 PO; -MELA1TAB28 PO; +MELA3TAB39 PO; -NAPR-56 PO; -OXYC-150 PO; +POTA10CA85 PO; +RIVA20TA PO; -SALI45SP PO; -VENL150T3 PO; +VENL75CA61 PO
[2023-03-25] MEDS ORDERED: HYDROmorphone 1 mg/ml syringe SQ ONE (16:20)
[2023-03-25] MEDS ORDERED: ondansetron 4mg rapidly disintigrating tab PO ONE (16:20)
[2023-03-25] MEDS ORDERED: HYDR-3965 PO (19:25)
[2023-03-25 20:26] VITALS: BP 123/85
[2023-03-29] MEDS ORDERED: LACT10SO78 PO (00:01)
== END 2023-03-25 19:40 | disposition home or self-care (01) ==
LOC: ER 15:15
DX: S39.012A Strain of muscle, fascia and tendon of lower back, initial encounter (principal); I50.9 Heart failure, unspecified; I11.0 Hypertensive heart disease with heart failure; E78.00 Pure hypercholesterolemia, unspecified; J44.9 Chronic obstructive pulmonary disease, unspecified; K21.9 Gastro-esophageal reflux disease without esophagitis; E11.9 Type 2 diabetes mellitus without complications; Z88.7 Allergy status to serum and vaccine; Z79.899 Other long term (current) drug therapy; Z79.82 Long term (current) use of aspirin; X58.XXXA Exposure to other specified factors, initial encounter; Y93.89 Activity, other specified; Y92.89 Other specified places as the place of occurrence of the external cause; Y99.8 Other external cause status
CPT/HCPCS: 72100; 96372; 99283; J1170; A4615

== ENCOUNTER 2023-04-05 14:57 | Emergency (ER) | payer OTHER, MEDICARE ==
[~2023-04-05] VITALS: Ht 172.7 cm; Wt 100.0 kg
[~2023-04-05 14:57] MED LIST changes: +HYDR-3965 PO; +LACT10SO78 PO
[2023-04-05 15:20] VITALS: BP 145/38; PULSE 79; TEMP 98.5; O2SAT 95
[2023-04-05] MEDS ORDERED: HYDROcodone/acetaminophen 10/325mg tab PO ONE (15:25)
[2023-04-05] MEDS ORDERED: ketorolac trometh inj. 60 MG/2 ML VIAL IM ONE (15:40)
[2023-04-05] MEDS ORDERED: IBUP-1986 PO (15:56)
[2023-04-05] MEDS ORDERED: OXYC-481 PO (15:56)
[2023-04-05 16:14] VITALS: RESP 18
== END 2023-04-05 16:35 | disposition home or self-care (01) ==
LOC: ER 14:57
DX: M54.50 Low back pain, unspecified (principal); I11.0 Hypertensive heart disease with heart failure; I50.9 Heart failure, unspecified; E78.00 Pure hypercholesterolemia, unspecified; J44.9 Chronic obstructive pulmonary disease, unspecified; K21.9 Gastro-esophageal reflux disease without esophagitis; E11.9 Type 2 diabetes mellitus without complications; N20.0 Calculus of kidney; Z88.7 Allergy status to serum and vaccine; Z79.82 Long term (current) use of aspirin; Z79.899 Other long term (current) drug therapy
CPT/HCPCS: 96372; 99283; J1885

== ENCOUNTER 2023-04-08 14:32 | Emergency (ER) | payer OTHER, MEDICARE ==
[~2023-04-08] VITALS: Ht 172.7 cm; Wt 100.0 kg
[~2023-04-08 14:32] MED LIST changes: +IBUP-1986 PO; +OXYC-481 PO
[2023-04-08 15:03] LABS: BASOPHILS # (AUTO) 0.1 X10'3 (0-0.2); EOSINOPHILS # (AUTO) 0.1 X10'3 (0-0.9); EOSINOPHILS % (AUTO) 1.4 % (0-6); HEMATOCRIT 44.1 % (42.0-52.0); LYMPHOCYTES # (AUTO) 0.9 X10'3 (1.1-4.8); MEAN CORPUSCULAR HEMOGLOBIN 34.2 PG (27.0-31.0); MEAN CORPUSCULAR HGB CONC 34.1 g/dL (33.0-36.5); MEAN CORPUSCULAR VOLUME 100.4 FL (78-98); MEAN PLATELET VOLUME 9.1 FL (7.4-10.4); MONOCYTES % (AUTO) 13.5 % (2-12); NEUTROPHILS # (AUTO) 5.5 X10'3 (1.8-7.7); NEUTROPHILS % (AUTO) 72.1 % (42-75); PLATELET COUNT 206 X10'3 (140-440); RED BLOOD COUNT 4.39 X10'6 (4.70-6.10); RED CELL DISTRIBUTION WIDTH 13.6 % (11.5-14.5); WHITE BLOOD COUNT 7.6 X10'3 (4.5-11.0)
[2023-04-08 15:15] VITALS: TEMP 97.9
[2023-04-08 15:26] LABS: ALANINE AMINOTRANSFERASE 17 U/L (12-78); ALBUMIN 3.7 G/DL (3.4-5.0); ALKALINE PHOSPHATASE 223 IU/L (46-116); ANION GAP 9 (8-16); ASPARTATE AMINO TRANSFERASE 27 U/L (10-37); BILIRUBIN,TOTAL 1.3 MG/DL (0.1-1.0); BLOOD UREA NITROGEN 27 MG/DL (7-18); BUN/CREATININE RATIO 18.2 (10.0-20.0); CALCIUM 9.2 MG/DL (8.5-10.1); CHLORIDE 104 MMOL/L (99-107); CREATININE 1.48 MG/DL (0.60-1.10); GLUCOSE 171 MG/DL (70-104); LIPASE < 50 U/L (73-393); SODIUM 140 MMOL/L (135-145); TOTAL CARBON DIOXIDE 27.4 MMOL/L (24-32); TOTAL PROTEIN 7.5 G/DL (6.4-8.2); eGFR 46 ML/MIN
[2023-04-08] MEDS ORDERED: normal saline 1000ml 1,000 ML IV ONE (22:10)
[2023-04-08] MEDS ORDERED: acetaminophen 325mg tablet PO ONE (22:10)
[2023-04-08] MEDS ORDERED: fentaNYL/PF 50MCG/1 ML 2ML syringe IV ONE (22:10)
[2023-04-08] MEDS ORDERED: HYDROcodone/acetaminophen 10/325mg tab PO ONE (22:10)
[2023-04-08] MEDS ORDERED: ondansetron/PF 4mg/2ml inj IV ONE (22:10)
[2023-04-08 23:37] LABS: CLARITY,URINE SLIGHTLY CLOUDY (Clear); GLUCOSE, URINE 100 mg/dl (Neg); KETONES,URINE NEGATIVE (Neg); LEUKOCYTE ESTERASE ,URINE NEGATIVE (Neg); OCCULT BLOOD,URINE LARGE (Neg); PH,URINE 5.5 (4.8-8.0); PROTEIN,URINE TRACE mg/dl (Neg)
[2023-04-08 23:42] LABS: COLOR,URINE DARK YELLOW (Yellow); NITRITES, URINE NEGATIVE (Neg); UA COLLECTION TYPE VOIDED
[2023-04-08 23:44] LABS: BACTERIA,URINE FEW /HPF (Neg); SQUAMOUS EPITHELIAL CELL,UR FEW /LPF (FEW); WBC,URINE 0-4 /HPF (0-4)
--- NOTE | 2023-04-09 00:30 | NUR ---
PT PAO2 DROPPING INTO MID TO HIGH 80'S WHILE RESTING, PLACED ON 02, 2L, NC WITH INCREASE TO 92-93%
[2023-04-09] MEDS ORDERED: ketorolac trometh. 30mg/ml inj. IV ONE (02:05)
[2023-04-09 05:48] VITALS: BP 120/64; PULSE 69; RESP 12; O2SAT 98
[2023-04-15] MEDS ORDERED: CYCL-1 PO ×2 (19:26)
== END 2023-04-09 05:50 | disposition home or self-care (01) ==
LOC: ER 14:32
DX: M54.50 Low back pain, unspecified (principal); R30.0 Dysuria; R50.9 Fever, unspecified; I11.0 Hypertensive heart disease with heart failure; I51.9 Heart disease, unspecified; J44.9 Chronic obstructive pulmonary disease, unspecified; K21.9 Gastro-esophageal reflux disease without esophagitis; E11.9 Type 2 diabetes mellitus without complications; G89.29 Other chronic pain; M54.9 Dorsalgia, unspecified; E78.00 Pure hypercholesterolemia, unspecified; Z88.8 Allergy status to other drugs, medicaments and biological substances; Z79.1 Long term (current) use of non-steroidal anti-inflammatories (NSAID); Z79.2 Long term (current) use of antibiotics; Z79.82 Long term (current) use of aspirin
CPT/HCPCS: 36415; 74176; 80053; 81001; 83690; 85025; 87088; 96361; 96374; 96375; 99285; J1885; J2405; J3010; J7030; A4615

== ENCOUNTER 2023-04-14 10:26 | Emergency (ER) | payer OTHER, MEDICARE ==
[~2023-04-14] VITALS: Ht 172.7 cm; Wt 100.0 kg
[~2023-04-14 10:26] MED LIST changes: -OXYC-481 PO
[2023-04-14 11:11] VITALS: BP 112/62; PULSE 62; RESP 18; TEMP 97.6; O2SAT 96
[2023-04-15] MEDS ORDERED: CYCL-1 PO (19:26)
== END 2023-04-14 20:06 | disposition left against medical advice (07) ==
LOC: ER 10:26
DX: M54.9 Dorsalgia, unspecified (principal); Z53.21 Procedure and treatment not carried out due to patient leaving prior to being seen by health care provider
CPT/HCPCS: 99281

== ENCOUNTER 2023-04-15 13:46 | Emergency (ER) | payer OTHER, MEDICARE ==
[~2023-04-15] VITALS: Ht 172.7 cm; Wt 113.6 kg
[2023-04-15 14:04] VITALS: TEMP 98.1
[2023-04-15 15:09] LABS: BASOPHILS # (AUTO) 0.1 X10'3 (0-0.2); BASOPHILS % (AUTO) 0.7 % (0-1); EOSINOPHILS # (AUTO) 0.1 X10'3 (0-0.9); EOSINOPHILS % (AUTO) 1.1 % (0-6); HEMATOCRIT 42.2 % (42.0-52.0); LYMPHOCYTES # (AUTO) 0.6 X10'3 (1.1-4.8); LYMPHOCYTES % (AUTO) 9.5 % (21-51); MEAN CORPUSCULAR HEMOGLOBIN 33.6 PG (27.0-31.0); MEAN CORPUSCULAR HGB CONC 33.2 g/dL (33.0-36.5); MEAN CORPUSCULAR VOLUME 101.3 FL (78-98); MEAN PLATELET VOLUME 9.2 FL (7.4-10.4); MONOCYTES # (AUTO) 0.7 X10'3 (0-0.9); MONOCYTES % (AUTO) 10.3 % (2-12); NEUTROPHILS # (AUTO) 5.3 X10'3 (1.8-7.7); NEUTROPHILS % (AUTO) 78.4 % (42-75); PLATELET COUNT 215 X10'3 (140-440); RED BLOOD COUNT 4.17 X10'6 (4.70-6.10); WHITE BLOOD COUNT 6.8 X10'3 (4.5-11.0)
[2023-04-15 15:20] LABS: ALANINE AMINOTRANSFERASE 15 U/L (12-78); ALBUMIN 3.3 G/DL (3.4-5.0); ALBUMIN/GLOBULIN RATIO 0.9 (1.1-1.5); ALKALINE PHOSPHATASE 207 IU/L (46-116); ANION GAP 8 (8-16); ASPARTATE AMINO TRANSFERASE 14 U/L (10-37); BILIRUBIN,TOTAL 1.1 MG/DL (0.1-1.0); BLOOD UREA NITROGEN 19 MG/DL (7-18); CALCIUM 8.8 MG/DL (8.5-10.1); CHLORIDE 106 MMOL/L (99-107); CREATININE 1.36 MG/DL (0.60-1.10); GLUCOSE 198 MG/DL (70-104); POTASSIUM 3.8 MMOL/L (3.5-5.1); SODIUM 139 MMOL/L (135-145); TOTAL CARBON DIOXIDE 25.1 MMOL/L (24-32); TOTAL PROTEIN 6.8 G/DL (6.4-8.2); eGFR 51 ML/MIN
[2023-04-15] MEDS ORDERED: HYDROmorphone 1 mg/ml syringe IM ONE (19:25)
[2023-04-15] MEDS ORDERED: ketorolac trometh. 30mg/ml inj. IM ONE (19:25)
[2023-04-15] MEDS ORDERED: cyclobenzaprine 10mg tablet PO ONE (19:25)
[2023-04-15] MEDS ORDERED: CYCL-1 PO (19:26)
[2023-04-15 23:27] VITALS: BP 118/85; PULSE 72; RESP 18; O2SAT 99
== END 2023-04-15 23:28 | disposition home or self-care (01) ==
LOC: ER 13:47
DX: M54.50 Low back pain, unspecified (principal); I11.0 Hypertensive heart disease with heart failure; I50.9 Heart failure, unspecified; J44.9 Chronic obstructive pulmonary disease, unspecified; K21.9 Gastro-esophageal reflux disease without esophagitis; N20.0 Calculus of kidney; Z88.7 Allergy status to serum and vaccine; Z79.899 Other long term (current) drug therapy; Z79.82 Long term (current) use of aspirin
CPT/HCPCS: 36415; 80053; 85025; 96372; 99285; J1170; J1885

== ENCOUNTER 2023-04-17 08:49 | Outpatient (CLI) | payer OTHER, MEDICARE ==
[~2023-04-17 08:49] MED LIST changes: +CYCL-1 PO
== END 2023-04-17 23:59 | disposition home or self-care (01) ==
LOC: RAD 08:49
PROVIDERS: ATTEND Nurse Practitioner Adult Health
DX: M47.817 Spondylosis without myelopathy or radiculopathy, lumbosacral region (principal); M48.07 Spinal stenosis, lumbosacral region; M25.78 Osteophyte, vertebrae
CPT/HCPCS: 70551

== ENCOUNTER 2023-04-20 00:10 | Inpatient (IN) | payer OTHER, MEDICARE ==
[~2023-04-20] VITALS: Ht 172.7 cm; Wt 97.3 kg
[2023-04-20] VITALS (11 sets, daily range): BP systolic 98–134; BP diastolic 57–66; PULSE 61–82; RESP 15–21; TEMP 97.3–97.9; O2SAT 92–97
[2023-04-20] MEDS ORDERED: ipratropium/albuterol 3ml nebule NEB ONE (00:50)
[2023-04-20] MEDS ORDERED: methylPREDNISolone sod succ 125mg/2ml vial IV ONE (00:50)
[2023-04-20] MEDS ORDERED: azithromycin/NS 500mg/250ml 250 ML IV ONE (01:15)
[2023-04-20 02:12] LABS: INR 1.2 INR; PROTHROMBIN TIME 12.7 SECONDS (9.0-12.0)
[2023-04-20 02:15] LABS: ALANINE AMINOTRANSFERASE 16 U/L (12-78); ALBUMIN 3.4 G/DL (3.4-5.0); ALBUMIN/GLOBULIN RATIO 0.8 (1.1-1.5); ALKALINE PHOSPHATASE 221 IU/L (46-116); ANION GAP 12 (8-16); ASPARTATE AMINO TRANSFERASE 16 U/L (10-37); BILIRUBIN,TOTAL 1.9 MG/DL (0.1-1.0); BLOOD UREA NITROGEN 24 MG/DL (7-18); BUN/CREATININE RATIO 18.3 (10.0-20.0); CALCIUM 9.3 MG/DL (8.5-10.1); CHLORIDE 103 MMOL/L (99-107); CREATININE 1.31 MG/DL (0.60-1.10); GLUCOSE 182 MG/DL (70-104); POTASSIUM 3.9 MMOL/L (3.5-5.1); SODIUM 140 MMOL/L (135-145); TOTAL CARBON DIOXIDE 24.6 MMOL/L (24-32); TOTAL PROTEIN 7.5 G/DL (6.4-8.2); eCRCL 47 ML/MIN; eGFR 53 ML/MIN
[2023-04-20 02:23] LABS: PRO BRAIN NATRIURETIC PEPTIDE 10769 PG/ML (0-450)
[2023-04-20 02:29] LABS: BASOPHILS # (AUTO) 0.1 X10'3 (0-0.2); BASOPHILS % (AUTO) 0.8 % (0-1); EOSINOPHILS % (AUTO) 0.4 % (0-6); HEMATOCRIT 42.8 % (42.0-52.0); HEMOGLOBIN 14.6 g/dl (14.0-17.9); LYMPHOCYTES # (AUTO) 0.6 X10'3 (1.1-4.8); LYMPHOCYTES % (AUTO) 5.4 % (21-51); MEAN CORPUSCULAR HEMOGLOBIN 34.5 PG (27.0-31.0); MEAN CORPUSCULAR HGB CONC 34.2 g/dL (33.0-36.5); MEAN CORPUSCULAR VOLUME 100.9 FL (78-98); MEAN PLATELET VOLUME 9.4 FL (7.4-10.4); MONOCYTES # (AUTO) 1.1 X10'3 (0-0.9); MONOCYTES % (AUTO) 10.4 % (2-12); NEUTROPHILS # (AUTO) 9.1 X10'3 (1.8-7.7); PLATELET COUNT 223 X10'3 (140-440); RED BLOOD COUNT 4.24 X10'6 (4.70-6.10); RED CELL DISTRIBUTION WIDTH 13.7 % (11.5-14.5); WHITE BLOOD COUNT 10.9 X10'3 (4.5-11.0)
[2023-04-20] MEDS ORDERED: furosemide 10 MG/1 ML 10ml inj IV ONE (02:50)
--- NOTE | 2023-04-20 02:59 | NUR ---
pt o2 saturation dropping to low 80s on room air. pt placed on 1L nasal canula. o2 saturation between 89% and 92% currectly. md franco notified.
[2023-04-20] MEDS ORDERED: potassium Cl 40MEQ/1/2NS 520ml 520 ML IV PRN (04:10)
[2023-04-20] MEDS ORDERED: PERFLUTREN PROTEIN-A MICROSPHR (Optison) 0.22 MG/ML 3ML VIAL IV ONE (04:10)
[2023-04-20] MEDS ORDERED: potassium Cl 20 mEq SR tablet PO PRN ×2 (04:10)
[2023-04-20] MEDS ORDERED: DEXTROSE 15 GM of carb/4 tabs (each vial/BOTTLE has 4 tablets) PO PRN ×2 (04:10)
[2023-04-20] MEDS ORDERED: ipratropium/albuterol 3ml nebule NEB PRN (04:10)
[2023-04-20] MEDS ORDERED: acetaminophen 325mg tablet PO PRN ×2 (04:10→05:10)
[2023-04-20] MEDS ORDERED: mag hydrox/Alum hydrox/simeth 30ml oral suspension PO PRN (04:10)
[2023-04-20] MEDS ORDERED: glucagon, human recombinant 1mg kit SUBCUT PRN (04:10)
[2023-04-20] MEDS ORDERED: dextrose 50%-water 50ml dispensing syringe IV PRN ×2 (04:10)
[2023-04-20] MEDS ORDERED: magnesium 4gm in 100ml NS 100 ML IV PRN (04:10)
[2023-04-20] MEDS ORDERED: MESSAGE TO PHARMACY PO ONE (04:10)
[2023-04-20] MEDS ORDERED: ondansetron/PF 4mg/2ml inj IV PRN (04:10)
[2023-04-20] MEDS ORDERED: albuterol 2.5 MG/3 ML nebule NEB PRN (04:10)
[2023-04-20] MEDS ORDERED: HYDROcodone/acetaminophen 10/325mg tab PO PRN (04:40)
[2023-04-20 04:48] LABS: MAGNESIUM 1.9 MG/DL (1.5-2.4); POTASSIUM 3.9 MMOL/L (3.5-5.1)
[2023-04-20] MEDS ORDERED: CYCL-394 PO (04:56)
[2023-04-20] MEDS ORDERED: LACT10SO3 PO (04:56)
[2023-04-20] MEDS ORDERED: IBUP-1984 PO (04:56)
[2023-04-20] MEDS ORDERED: polyvinyl alcohol ophthalmic drops 15ml bottle EACHEYE PRN (05:10)
[2023-04-20] MEDS ORDERED: KETOTIFEN FUMARATE EACHEYE PRN (05:10)
--- NOTE | 2023-04-20 07:05 | NUR ---
RN PAGED RT TO GIVE RT TX SEBAS.
[2023-04-20] MEDS: budesonide 0.5mg/2ml UD nebule IH SCH ×2 (07:16→19:58)
--- NOTE | 2023-04-20 07:17 | NUR ---
PT HAS WOUNDS TO BILATERAL GROIN AREA. RN TOOK PICS AND PLACED IN CHART.
[2023-04-20] MEDS ORDERED: heparin, porcine 5000 units/ml vial SQ SCH (08:00)
[2023-04-20] MEDS: K and/or MAG REPLACEMENT MC SCH ×2 (08:00→20:00)
[2023-04-20] MEDS: docusate sod 100mg capsule PO SCH ×4 (08:00→21:30)
--- NOTE | 2023-04-20 09:05 | NUR ---
RN CALLED PHARM AND REQ [facility] FOR NOC AND THEY WILL DEL
--- NOTE | 2023-04-20 09:19 | NUR ---
PT HAVING BM AT THIS TIME. PT STATES THAT HE HAS NOT HAD A BM FOR ALMOST 2 WEEKS. PT STATES THAT BM IS COMING EASY BUT HE WOULD LIKE TO CONT LACTULOSE UNTIL BM IS REGULAR. RN EDUCATED PT TO NOTIFY HER IF HIS STOOL BECOMES LOOSE AND HE VERBALIZED UNDERSTANDING.
--- NOTE | 2023-04-20 09:28 | NUR ---
PT HAD LARGE SOFT BM. PT REFUSED LACTULOSE BUT WILL TAKE COLACE.
[2023-04-20] MEDS: lactulose 20gm/30ml cup PO SCH (09:29)
[2023-04-20] MEDS: cholecalciferol (vitamin D3) 1,000 unit (25mcg) tablet PO SCH (09:33)
[2023-04-20] MEDS: atorvastatin 20mg tablet PO SCH (09:34)
[2023-04-20] MEDS: amiodarone 200mg tablet PO SCH (09:34)
[2023-04-20] MEDS: ibuprofen tablet 400 MG TABLET PO SCH ×2 (09:34→15:53)
[2023-04-20] MEDS: aspirin 81mg, enteric-coated 1 TAB TABLET.DR PO SCH (09:35)
[2023-04-20] MEDS: carVEDilol 3.125mg tablet PO SCH ×2 (09:35→17:43)
[2023-04-20] MEDS: multivitamins, therapeutics tablet PO SCH (09:35)
[2023-04-20] MEDS: venlafaxine XR 75mg capsule (Q24H) PO SCH (09:35)
[2023-04-20] MEDS: EMPAGLIFLOZIN 25 MG TABLET PO SCH (09:37)
[2023-04-20] MEDS: loratadine 10mg tablet PO SCH (09:40)
--- NOTE | 2023-04-20 09:41 | NUR ---
PT REFUSED COLACE AND WILL NOTIFY RN IF HE FEELS HE NEEDS IT. PT HAD LARGE SOFT BM.
[2023-04-20] MEDS: insulin Lispro (HumaLOG) vial - multi-dose SQ SCH ×3 (09:44→19:13)
--- NOTE | 2023-04-20 13:24 | NUR ---
RN ATTEMPTED TO CALL REPORT TO WILVER VENTURA AND SHE IS IN [facility] WITH [facility]IGH ACUITY PT AND WILL CALL BACK FOR REPORT ONCE SHE RETURNS.
--- NOTE | 2023-04-20 14:05 | NUR ---
PT JUST FINISHED LUNCH. RN OBTAINING 2ND RN VERIFICATION AND WILL ADMIN INSULIN.
--- NOTE | 2023-04-20 14:21 | NUR ---
MEDIA RELATIONS INTERN HELPING HIGH ACUITY PT AT THIS TIME. 2ND RN REQ CONFIRMATION WITH CHARGE REGARDING INSULIN DOSE PER PROTOCOL. THIS RN CALLED PHARMACIST TO CONFIRM CORRECT DOSE OF INSULIN PER PROTOCOL AND SHE WILL CALL RN BACK. THIS RN WILL ATTEMPT TO LOCATE CHARGE IN ICU OR DIFF UNIT TO CONFIRM AND HAVE 2ND RN ADMIN DOSE REQUIRED. ONCE PT RECEIVES INSULIN RN WILL TRANPORT PT TO FLOOR.
--- NOTE | 2023-04-20 14:31 | NUR ---
THIS RN SPOKE WITH KELLEE NUNEZ ON ORTHO FLOOR AND SHE CONFIRMED WITH RN THAT THE PT SHOULD MOVE UP TO LEVEL 3 AND IF THE PT ATE 47 GM OF CARBS THE INSULIN DOSE SHOULD BE 17 UNITS.
[2023-04-20] MEDS ORDERED: ondansetron 4mg rapidly disintigrating tab PO PRN (15:20)
[2023-04-20] MEDS ORDERED: rivaroxaban 20mg tablet PO SCH (17:00)
--- NOTE | 2023-04-20 18:52 | NUR ---
Problems reprioritized. Patient report given, questions answered & plan of care reviewed with LORENZO ABDUL.
[2023-04-20] MEDS ORDERED: ibuprofen tablet 400 MG TABLET PO PRN (20:00)
[2023-04-20] MEDS: furosemide 10 MG/1 ML 10ml inj IV SCH (20:00)
[2023-04-20] MEDS ORDERED: cyclobenzaprine 10mg tablet PO SCH (21:00)
[2023-04-20] MEDS ORDERED: traZODone 50mg tablet PO SCH (21:00)
[2023-04-20] MEDS ORDERED: Melatonin 3mg tablet PO SCH (21:00)
[2023-04-20] MEDS ORDERED: insulin glargine (Lantus) pen - multi-dose SQ SCH (21:00)
[2023-04-21] VITALS (7 sets, daily range): BP systolic 89–118; BP diastolic 49–67; PULSE 58–66; RESP 14–22; TEMP 96–98; O2SAT 94–99
[2023-04-21 06:21] LABS: BASOPHILS % (AUTO) 0 % (0-1); EOSINOPHILS % (AUTO) 0 % (0-6); HEMATOCRIT 38.2 % (42.0-52.0); LYMPHOCYTES # (AUTO) 0.3 X10'3 (1.1-4.8); LYMPHOCYTES % (AUTO) 2.7 % (21-51); MEAN CORPUSCULAR HEMOGLOBIN 33.9 PG (27.0-31.0); MEAN CORPUSCULAR HGB CONC 33.9 g/dL (33.0-36.5); MEAN CORPUSCULAR VOLUME 100.1 FL (78-98); MEAN PLATELET VOLUME 9.5 FL (7.4-10.4); MONOCYTES # (AUTO) 0.3 X10'3 (0-0.9); MONOCYTES % (AUTO) 3.1 % (2-12); NEUTROPHILS # (AUTO) 10.3 X10'3 (1.8-7.7); NEUTROPHILS % (AUTO) 94.2 % (42-75); PLATELET COUNT 203 X10'3 (140-440); RED BLOOD COUNT 3.82 X10'6 (4.70-6.10); RED CELL DISTRIBUTION WIDTH 13.8 % (11.5-14.5)
[2023-04-21 06:32] LABS: ALANINE AMINOTRANSFERASE 14 U/L (12-78); ALBUMIN 2.7 G/DL (3.4-5.0); ALBUMIN/GLOBULIN RATIO 0.8 (1.1-1.5); ALKALINE PHOSPHATASE 166 IU/L (46-116); ANION GAP 9 (8-16); ASPARTATE AMINO TRANSFERASE 13 U/L (10-37); BILIRUBIN,TOTAL 0.9 MG/DL (0.1-1.0); BLOOD UREA NITROGEN 43 MG/DL (7-18); BUN/CREATININE RATIO 23.1 (10.0-20.0); CALCIUM 9.1 MG/DL (8.5-10.1); CHLORIDE 102 MMOL/L (99-107); CREATININE 1.86 MG/DL (0.60-1.10); GLUCOSE 147 MG/DL (70-104); MAGNESIUM 2.2 MG/DL (1.5-2.4); POTASSIUM 3.9 MMOL/L (3.5-5.1); SODIUM 137 MMOL/L (135-145); TOTAL CARBON DIOXIDE 26.4 MMOL/L (24-32); TOTAL PROTEIN 6.1 G/DL (6.4-8.2); eCRCL 33 ML/MIN; eGFR 36 ML/MIN
--- NOTE | 2023-04-21 06:36 | NUR ---
Problems reprioritized. Patient report given, questions answered & plan of care reviewed with Blanca
[2023-04-21] MEDS: K and/or MAG REPLACEMENT MC SCH (06:51)
[2023-04-21] MEDS: budesonide 0.5mg/2ml UD nebule IH SCH (07:46)
[2023-04-21] MEDS: docusate sod 100mg capsule PO SCH ×2 (08:00)
[2023-04-21] MEDS: carVEDilol 3.125mg tablet PO SCH (08:22)
[2023-04-21] MEDS: amiodarone 200mg tablet PO SCH (08:24)
[2023-04-21] MEDS: lactulose 20gm/30ml cup PO SCH (08:24)
[2023-04-21] MEDS: furosemide 10 MG/1 ML 10ml inj IV SCH (08:24)
[2023-04-21] MEDS: venlafaxine XR 75mg capsule (Q24H) PO SCH (08:24)
[2023-04-21] MEDS: aspirin 81mg, enteric-coated 1 TAB TABLET.DR PO SCH (08:24)
[2023-04-21] MEDS: atorvastatin 20mg tablet PO SCH (08:24)
[2023-04-21] MEDS: loratadine 10mg tablet PO SCH (08:24)
[2023-04-21] MEDS: EMPAGLIFLOZIN 25 MG TABLET PO SCH (08:25)
[2023-04-21] MEDS: cholecalciferol (vitamin D3) 1,000 unit (25mcg) tablet PO SCH (08:25)
[2023-04-21] MEDS: multivitamins, therapeutics tablet PO SCH (08:25)
[2023-04-21] MEDS: insulin Lispro (HumaLOG) vial - multi-dose SQ SCH ×2 (09:32→15:36)
[2023-04-21] MEDS ORDERED: SYRI-641 SUBCUT ×2 (12:36→15:25)
[2023-04-21] MEDS ORDERED: INSU100V12 SQ ×3 (12:36→15:25)
--- NOTE | 2023-04-21 14:21 | NUR ---
PRESSURE ULCER EDUCATION: DEFINITION: A pressure ulcer is an area of skin that breaks down when you stay in one position too long. The constant pressure against the skin reduces the blood flow to that area and the affected tissue dies. CAUSES: "Being bedridden or in a wheelchair "Fragile skin "Having a chronic condition, such as diabetes or vascular disease "Inability to move certain parts of your body without assistance "Older age "Incontinence of urine or stool SYMPTOMS: "A reddened area that DOES NOT turn white when pressed on - this can be the beginning of a pressure ulcer "A blister, deep sore or a crater - these can be advanced pressure ulcers FIRST AID: "Relieve the pressure on this area "Keep the area clean and dry "Call your primary doctor if you see any of the above symptoms "DO NOT massage the area "DO NOT use a donut shaped or ring shaped pillow- these actually interfere with the blood flow and cause complications PREVENTION: "Check for pressure ulcers everyday "Change position at least every two hours to relieve pressure "Use items that help relieve pressure- pillows, sheepskin, foam padding, and powders. "Keep skin clean and dry "Eat healthy well balanced meals "Exercise daily IF YOU SEE ANY OF THESE SYMPTOMS WHILE IN THE HOSPITAL - TELL YOUR NURSE IMMEDIATELY. IF YOU SEE ANY OF THESE SYMPTOMS WHILE AT HOME OR HAVE ANY QUESTIONS OR CONCERNS ABOUT PRESSURE ULCERS - CALL YOUR PRIMARY DOCTOR IMMEDIATELY. Addendum: 04/21/23 at 1422 by Dorothy Montenegro LVN Amended: Links added.
--- NOTE | 2023-04-21 17:14 | NUR ---
Discharged to the care of his Sister, Pt. has previous experience with SQ injections. He will be picking up his insulin from the [place] pharmacy. Is at this time unable to tolerate activity, becomes winded and needs to sit after ambulating 20 ft. Instructions are provided in writing. Pt. is instructed to follow up with Dr. Lozano in one weeks time. Pt. says he may opt for the [place] [facility]. Is discharging with his personal belongings including his cell phone, but notes that his black T-shirt is missing.
[2023-04-21] MEDS ORDERED: nystatin 15 GM powder TP SCH (20:00)
== END 2023-04-21 17:08 | disposition home health service (06) | DRG 189 ==
LOC: ER 00:11 → ED HOLD 04:17 → PCU 3S 15:20
PROVIDERS: ADMIT Family Medicine; ATTEND Family Medicine
DX: J96.01 Acute respiratory failure with hypoxia (principal); I50.23 Acute on chronic systolic (congestive) heart failure; I13.0 Hypertensive heart and chronic kidney disease with heart failure and stage 1 through stage 4 chronic kidney disease, or unspecified chronic kidney disease; J44.1 Chronic obstructive pulmonary disease with (acute) exacerbation; M48.56XA Collapsed vertebra, not elsewhere classified, lumbar region, initial encounter for fracture; Z20.822 Contact with and (suspected) exposure to COVID-19; E11.65 Type 2 diabetes mellitus with hyperglycemia; E78.00 Pure hypercholesterolemia, unspecified; I25.10 Atherosclerotic heart disease of native coronary artery without angina pectoris; G89.29 Other chronic pain; K21.9 Gastro-esophageal reflux disease without esophagitis; M54.9 Dorsalgia, unspecified; I48.91 Unspecified atrial fibrillation; N18.30 Chronic kidney disease, stage 3 unspecified; E11.22 Type 2 diabetes mellitus with diabetic chronic kidney disease; Z79.01 Long term (current) use of anticoagulants; Z79.4 Long term (current) use of insulin; I25.2 Old myocardial infarction; Z79.84 Long term (current) use of oral hypoglycemic drugs; Z79.899 Other long term (current) drug therapy; Z80.0 Family history of malignant neoplasm of digestive organs; Z80.8 Family history of malignant neoplasm of other organs or systems; Z82.5 Family history of asthma and other chronic lower respiratory diseases; Z83.3 Family history of diabetes mellitus; Z87.442 Personal history of urinary calculi; Z95.1 Presence of aortocoronary bypass graft; Z95.5 Presence of coronary angioplasty implant and graft; Z88.7 Allergy status to serum and vaccine; Z79.82 Long term (current) use of aspirin; Z95.810 Presence of automatic (implantable) cardiac defibrillator
CPT/HCPCS: 36415; 71045; 80053; 82948; 83605; 83735; 83880; 84132; 84484; 85025; 85610; 87040; 87081; 87811; 93005; 93306; 94640; 94760; 97116; 97161; 97530; 99285; G0378; J0456; J1815; J1940; J2930